=== PATIENT | female | born 1945 | race Caucasian/White ===

== ENCOUNTER 2020-01-25 09:10 | Outpatient (CLI) | payer MEDICARE, SELFPAY ==
--- NOTE | ~2020-01-25 | MM_ITS ---
EXAMINATION: MM screening [facility] BI w mary ann HISTORY: Screening mammogram TECHNIQUE: Craniocaudal and mediolateral oblique 3-D tomosynthesis images were obtained and synthetic 2-D images were generated. CAD analysis was submitted and interpreted. COMPARISON: Comparison to multiple prior studies sequentially, with oldest reviewed study dated 03/2013. BREAST PARENCHYMAL COMPOSITION: There are scattered areas of fibroglandular density. FINDINGS: There is no evidence of suspicious mass, calcification, or architectural distortion to sugg est malignancy in either breast. There has been no suspicious interval change. IMPRESSION: 1. No mammographic evidence of malignancy. 2. Recommend routine screening mammography in one year. BI-RADS Category 1: Negative Reviewed, dictated and finalized at location A. URE FRAME MAKER
== END 2020-01-25 09:11 | disposition home or self-care (01) ==
LOC: CHSIMG 09:11
PROVIDERS: PCP Family Medicine; Visit Provider Family Medicine
DX: Z12.31 Encounter for screening mammogram for malignant neoplasm of breast (principal)
CPT/HCPCS: 77063; 77067

== ENCOUNTER 2020-06-02 10:10 | Outpatient (CLI) | payer MEDICARE, SELFPAY ==
[2020-06-02 10:24] LABS: Basophils Absolute Auto 0.09 K/mm3 (0.00-0.10); Basophils Percent Auto 0.8 % (0.0-1.0); Eosinophils Absolute Auto 0.16 K/mm3 (0.02-0.50); Eosinophils Percent Auto 1.4 % (1.0-6.0); Hematocrit 35.3 % (35.0-42.0); Hemoglobin 12.1 g/dL (11.7-13.8); Immature Granulocyte Absolute 0.06 K/mm3 (0.00-0.00); Immature Granulocyte Percent A 0.5 % (0.0-0.0); Lymphocytes Absolute Auto 1.87 K/mm3 (1.10-4.50); Lymphocytes Percent Auto 16.7 % (18.0-42.0); Mean Corpuscular HGB Conc 34.3 g/dL (32.0-36.0); Mean Corpuscular Hemoglobin 31.9 pg (27.0-31.0); Mean Corpuscular Volume 93.1 fL (78.0-102.0); Mean Platelet Volume 10.8 fl (9.2-11.8); Monocytes Absolute Auto 0.86 K/mm3 (0.10-0.90); Monocytes Percent Auto 7.7 % (2.0-11.0); Neutrophils Absolute Auto 8.1 K/mm3 (1.7-7.2); Neutrophils Percent Auto 72.9 % (50.0-70.0); Platelet Count Result 216 K/mm3 (150-420); Red Blood Count 3.79 M/mm3 (4.20-5.40); Red Cell Distribution Width 12.6 % (11.6-14.4); White Blood Count 11.2 K/mm3 (4.8-10.8)
[2020-06-02 11:28] LABS: Albumin Level 3.8 g/dL (3.4-5.0); Blood Urea Nitrogen 30 mg/dL (7-18); Calcium 8.5 mg/dL (8.5-10.1); Carbon Dioxide 23 mmol/L (21-32); Chloride 103 mmol/L (98-108); Estimated Glomerular Filt Rate 21; Glucose 103 mg/dL (70-99); Osmolality Calculated 294 mOsm/kg (285-295); Phosphorus 3.3 mg/dL (2.6-4.7); Sodium 139 mmol/L (136-145)
[2020-06-05 10:40] LABS: Parathyroid Intact 226 pg/mL (14-64)
== END 2020-06-02 10:11 | disposition home or self-care (01) ==
PROVIDERS: PCP Family Medicine
DX: N18.4 Chronic kidney disease, stage 4 (severe) (principal)
CPT/HCPCS: 36415; 80069; 83970; 85025

== ENCOUNTER 2020-08-08 10:53 | Outpatient (CLI) | payer MEDICARE, SELFPAY ==
[2020-08-08 11:13] LABS: Hemoglobin A1C 5.8 % (<5.7)
== END 2020-08-08 10:54 | disposition home or self-care (01) ==
PROVIDERS: PCP Nurse Practitioner Family; Visit Provider Nurse Practitioner Family
DX: E11.9 Type 2 diabetes mellitus without complications (principal); Z79.4 Long term (current) use of insulin
CPT/HCPCS: 36415; 83036

== ENCOUNTER 2020-10-10 12:10 | Outpatient (CLI) | payer MEDICARE, SELFPAY ==
[2020-10-10 13:21] LABS: Anion Gap 12 mmol/L (8-16); Blood Urea Nitrogen 27 mg/dL (7-18); Carbon Dioxide 28 mmol/L (21-32); Chloride 103 mmol/L (98-108); Estimated Glomerular Filt Rate 19; Glucose 84 mg/dL (70-99); Osmolality Calculated 300 mOsm/kg (285-295); Potassium 4.1 mmol/L (3.5-5.1); Sodium 143 mmol/L (136-145)
[2020-10-13 11:50] LABS: Parathyroid Intact 107 pg/mL (14-64)
== END 2020-10-10 12:11 | disposition home or self-care (01) ==
PROVIDERS: PCP Family Medicine
DX: N18.4 Chronic kidney disease, stage 4 (severe) (principal)
CPT/HCPCS: 36415; 80048; 83970

== ENCOUNTER 2021-01-27 07:23 | Outpatient (CLI) | payer MEDICARE, MEDICAID, SELFPAY ==
--- NOTE | ~2021-01-27 | MM_ITS ---
EXAMINATION: MM screening [facility] w mary ann HISTORY: Screening TECHNIQUE: Craniocaudal and mediolateral oblique 3-D tomosynthesis images were obtained and synthetic 2-D images were generated. CAD analysis was submitted and interpreted. COMPARISON: Comparison to multiple prior studies sequentially, with oldest reviewed study dated 01/09. BREAST PARENCHYMAL COMPOSITION: There are scattered areas of fibroglandular density. FINDINGS: There is no evidence of suspicious mass, calcification, or architectural distortion to sugg est malignancy in either breast. There has been no suspicious interval change. IMPRESSION: 1. No mammographic evidence of malignancy. 2. Recommend routine screening mammography in one year. BI-RADS Category 1: Negative Reviewed, dictated and finalized at location A. WORKER
== END 2021-01-27 07:24 | disposition home or self-care (01) ==
LOC: CHSIMG 07:26
PROVIDERS: PCP Family Medicine; Visit Provider Family Medicine
DX: Z12.31 Encounter for screening mammogram for malignant neoplasm of breast (principal)
CPT/HCPCS: 77063; 77067

== ENCOUNTER 2021-12-01 11:13 | Outpatient (CLI) | payer OTHER, SELFPAY ==
[2021-12-01 11:56] LABS: Albumin Level 3.7 g/dL (3.4-5.0); Anion Gap 11 mmol/L (8-16); Blood Urea Nitrogen 35 mg/dL (7-18); Calcium 8.9 mg/dL (8.5-10.1); Carbon Dioxide 28 mmol/L (21-32); Chloride 105 mmol/L (98-108); Estimated Glomerular Filt Rate 24; Glucose 171 mg/dL (70-99); Osmolality Calculated 310 mOsm/kg (285-295); Phosphorus 4.7 mg/dL (2.6-4.7); Sodium 144 mmol/L (136-145)
== END 2021-12-01 11:14 | disposition home or self-care (01) ==
LOC: CHSLAB 11:17
PROVIDERS: PCP Family Medicine
DX: N18.30 Chronic kidney disease, stage 3 unspecified (principal)
CPT/HCPCS: 36415; 80069

== ENCOUNTER 2021-12-08 09:22 | Outpatient (CLI) | payer MEDICARE, OTHER, MEDICAID, SELFPAY ==
--- NOTE | ~2021-12-08 | US_ITS ---
EXAMINATION: US retroperitoneal comp EXAM DATE: 12/08/2021 09:58 INDICATION: Urinary Retention. TECHNIQUE: Multiple grayscale and Doppler images of the kidneys were obtained (by a technologist who performed the scan) and subsequently reviewed. Comparison is made to prior examination from 2009. FINDINGS: Severe bilateral renal cortical thinning. Right kidney: There is normal contour and echogenicity. It measures 7.6 x 3.9 x 3.9 centimeters. Th ere are no focal renal lesions identified. There is no hydronephrosis. Left kidney: There is lobular in contour and echogenicity. It measures 7.5 x 3.8 x 4.3 centimeters. Focal region was measured which could be a lobulation of the renal cortex, or solid mass measuring up to 2 cm. Possible lobulation in this location in 2009, atrophy of the other portions of cortex poten tially could cause this appearance. There is no hydronephrosis. Bladder unremarkable. Prevoid bladder volume is 149 mL, postvoid volume 10 mL. IMPRESSION: 1. Indeterminate left renal region, with lobulation or solid mass. Correlation with cross-sectional imaging, with contrast if able. 2. Severe bilateral renal cortical thinning, atrophy. 3. Only small postvoid residual. Reviewed, dictated and finalized at location A. TOLOGY SUPERVISOR
== END 2021-12-08 09:23 | disposition home or self-care (01) ==
PROVIDERS: PCP Nurse Practitioner Family
DX: N18.4 Chronic kidney disease, stage 4 (severe) (principal); R33.9 Retention of urine, unspecified
CPT/HCPCS: 76770

== ENCOUNTER 2022-01-28 07:36 | Outpatient (CLI) | payer OTHER, SELFPAY ==
--- NOTE | ~2022-01-28 | MM_ITS ---
EXAMINATION: MM screening [facility] BI w mary ann HISTORY: Screening mammogram TECHNIQUE: Craniocaudal and mediolateral oblique 3-D tomosynthesis images were obtained and synthetic 2-D images were generated. CAD analysis was submitted and interpreted. COMPARISON: 01/27/2021, 01/25/2020, 01/22/2019 BREAST PARENCHYMAL COMPOSITION: There are scattered areas of fibroglandular density. FINDINGS: There is no evidence of suspicious mass, calcification, or architectural distortion to sugg est malignancy in either breast. There has been no suspicious interval change. IMPRESSION: 1. No mammographic evidence of malignancy. 2. Recommend routine screening mammography in one year. BI-RADS Category 1: Negative Reviewed, dictated and finalized at location A. ETING PROJECT SPECIALIST
== END 2022-01-28 07:37 | disposition home or self-care (01) ==
LOC: CHSIMG 07:39
PROVIDERS: PCP Nurse Practitioner Family; Visit Provider Nurse Practitioner Family
DX: Z12.31 Encounter for screening mammogram for malignant neoplasm of breast (principal)
CPT/HCPCS: 77063; 77067

== ENCOUNTER 2022-03-03 11:45 | Outpatient (CLI) | payer OTHER, SELFPAY ==
--- NOTE | ~2022-03-03 | US_ITS ---
EXAMINATION: US retroperitoneal comp DATE: 03/03/2022 12:18 INDICATION: Stage IV chronic kidney disease TECHNIQUE: Multiple ultrasound grayscale images of the kidneys were obtained. COMPARISON: 12/08/2021 FINDINGS: The right kidney measures 9.2 x 3.8 x 4.1 cm. Small region of chronic cortical thinning at the upper pole of the right kidney as also seen on prior CT dated 06/20/2009. The left kidney measures 9.5 x 4.6 x 4.9 cm. With unchanged lobular peripheral contour without evident associated mass. Bilateral mild diffuse increased renal cortical echogenicity consistent with medical renal disease. 4 mm anechoic ri ght renal cyst. There is no hydronephrosis in either kidney. No stones identified. The bladder is no rmal with calculated prevoid bladder volume of 293 mm and calculated postvoid bladder volume of 25 mL . IMPRESSION: 1. Chronic cortical scarring at the upper pole of the right kidney and mild bilateral increased mame l cortical echogenicity consistent with medical renal disease. No hydronephrosis. 2. 25 mL calculated residual postvoid bladder volume. Reviewed, dictated and finalized at location B. IMPRESSION: 1. Chronic cortical scarring at the upper pole of the right kidney and mild bi lateral increased renal cortical echogenicity consistent with medical renal dis ease. No hydronephrosis. 2. 25 mL calculated residual postvoid bladder volume.
[2022-03-03 15:23] LABS: Appearance Urine Clear (Clear); Bilirubin Urine Negative (Negative); Color Urine Light Yellow (Yellow); Glucose Urine UA Negative (Negative); Ketones Urine Negative (Negative); Leukocyte Esterase Ur 2+ (Negative); Nitrate Urine Negative (Negative); Protein Urine Negative (Negative); Specific Grav Ur <= 1.005 (1.010-1.020); Urobilinogen Urine 0.2 mg/dL (0.2-1.0); pH Urine 5.5 (5.0-8.0)
[2022-03-03 15:27] LABS: Creatinine Urine 20.22 mg/dL (40-278); Total Protein Urine Random < 6.0 mg/dL (0.0-11.9)
[2022-03-03 15:47] LABS: Add Urine Microscopic? YES; Bacteria Urine 2+ /hpf; Blood Urine Trace-Intact (Negative); RBC Urine None seen /hpf (0-2); Renal Epithelial Cells Urine Few /hpf; Squamous Epithelial Cell Urine Few /hpf (Few); WBC Urine 0-3 /hpf (0-3)
[2022-03-03 15:47] LABS: Hematocrit 33.7 % (35.0-42.0); Hemoglobin 11.8 g/dL (11.7-13.8); Mean Corpuscular Volume 91.3 fL (78.0-102.0); Mean Platelet Volume 12.1 fl (9.2-11.8); Platelet Count Result 216 K/mm3 (150-420); Red Blood Count 3.69 M/mm3 (4.20-5.40); Red Cell Distribution Width 12.1 % (11.6-14.4); White Blood Count 9.3 K/mm3 (4.8-10.8)
[2022-03-03 15:54] LABS: Albumin Level 3.6 g/dL (3.4-5.0); Anion Gap 10 mmol/L (8-16); Blood Urea Nitrogen 18 mg/dL (7-18); Calcium 8.4 mg/dL (8.5-10.1); Carbon Dioxide 24 mmol/L (21-32); Chloride 91 mmol/L (98-108); Creatine Kinase 199 U/L (26-192); Estimated Glomerular Filt Rate 40; Ferritin 132 ng/mL (8-252); Glucose 64 mg/dL (70-99); Iron 76 ug/dL (50-170); Magnesium 1.6 mg/dL (1.8-2.4); Osmolality Calculated 259 mOsm/kg (285-295); Percent Iron Saturation 26 % (12-57); Phosphorus 3.3 mg/dL (2.6-4.7); Potassium 3.1 mmol/L (3.5-5.1); Sodium 125 mmol/L (136-145); Uric Acid 5.8 mg/dL (2.6-6.0)
[2022-03-07 05:07] LABS: Alpha 1 Globulin 0.3 g/dL (0.2-0.3); Alpha 2 Globulin 0.7 g/dL (0.5-0.9); Beta 1 Globulin 0.4 g/dL (0.4-0.6); Gamma Globulin 0.8 g/dL (0.8-1.7); Protein, Total 6.5 g/dL (6.1-8.1)
[2022-03-08 19:50] LABS: Creatinine, Random Urine 25 mg/dL (20-275); Total Protein/Creatinine Ratio 200 mg/g creat (21-161)
[2022-03-09 12:08] LABS: Parathyroid Intact 106 pg/mL (14-64)
[2022-03-09 15:13] LABS: Hemoglobin A1C 6.2 % (<5.7)
[2022-03-10 15:47] LABS: Vitamin D 25 Hydroxy 30 ng/mL (30-100)
== END 2022-03-03 11:46 | disposition home or self-care (01) ==
PROVIDERS: PCP Nurse Practitioner Family
DX: N18.6 End stage renal disease (principal); E55.9 Vitamin D deficiency, unspecified; D50.9 Iron deficiency anemia, unspecified
CPT/HCPCS: 36415; 76770; 80069; 81001; 82306; 82550; 82570; 82728; 83036; 83540; 83550; 83735; 83970; 84155; 84156; 84165; 84166; 84550; 85027

== ENCOUNTER 2022-03-04 12:23 | Emergency (ER) | payer OTHER, SELFPAY ==
--- NOTE | ~2022-03-04 | XR_ITS ---
EXAMINATION: XR chest 1V portable EXAM DATE: 03/04/2022 13:22 INDICATION: chest pain,Dizzy,Abn Labs . TECHNIQUE: Portable AP frontal chest x-ray was obtained. There is no prior study for comparison. FINDINGS: Left basilar granuloma. The lungs are otherwise clear. There are no pleural effusions. Th e cardiomediastinal silhouette is within normal limits. There is no pneumothorax suspected. There a re mild bony degenerative changes. IMPRESSION: No acute cardiopulmonary findings. Reviewed, dictated and finalized at location A.
--- NOTE | ~2022-03-04 | CT_ITS ---
EXAMINATION: CT brain wo [facility] EXAM DATE: 03/04/2022 13:22 INDICATION: Confusion, generalized weakness. Dizziness. TECHNIQUE: Spiral CT of the head was performed without contrast. Axial, coronal and sagittal images were reviewed. The dose-length product (DLP) for this examination was 529.67 mGy-cm. The exposure w as tailored according to patient size, and iterative reconstruction (ASIR) was used as additional dos e reduction technique. There is no prior study for comparison. FINDINGS: There is no acute intraparenchymal hemorrhage. No evidence of intraparenchymal brain mass lesion. No evidence of acute infarction. Please note that initial head CT has limited sensitivity f or small or acute infarctions. There is mild periventricular and subcortical hypodensity, nonspecifi c but probably related to small vessel ischemic disease. There is mild prominence of the sulci and ventricles related to cerebral atrophy. There is intracranial carotid arteriosclerosis. There are no extra-axial collections. There is no mass effect or midline shift. The orbits are unremarkable. Soft tissue is unremarkable. The visualized sinuses and mastoid air cells are well aerated. IMPRESSION: 1. No acute intracranial findings. 2. Chronic age related findings. Reviewed, dictated and finalized at location A.
[2022-03-04 12:47] VITALS: BP 145/68; PULSE 55; RESP 20; TEMP 36.7; O2SAT 100
--- NOTE | 2022-03-04 12:51 | ECG_ITS ---
Measurements Intervals [place] Rate: 54 P: 1 VT: 197 QRS: -36 QRSD: 87 T: 9 QT: 468 QTc: 447 Interpretive Statements SINUS BRADYCARDIA LEFT AXIS DEVIATION [QRS AXIS < -30] LOW QRS VOLTAGE IN PRECORDIAL LEADS [QRS DEFLECTION < 1.0 mV IN CHEST LEADS] MINIMAL VOLTAGE CRITERIA FOR LVH, CONSIDER NORMAL VARIANT [MEETS CRITERIA IN ONE OF: R(aVL), S(V1), R(V5), R(V5/V6)+S(V1)] POSSIBLE ANTERIOR MYOCARDIAL INFARCTION , OF INDETERMINATE AGE [30 ms Q WAVE IN V3/V4, OR R < 0.2 mV IN V4] NO PREVIOUS ECG AVAILABLE FOR COMPARISON Electronically Signed On 03-04-2022 19:03:10 CDT by Brandy Chiang M.D.
[2022-03-04] MEDS: SODIUM CHLORIDE 0.9% IV 1,000 ML 999 ML IV CONT (13:11)
[2022-03-04 13:14] LABS: Basophils Absolute Auto 0.06 K/mm3 (0.00-0.10); Basophils Percent Auto 0.7 % (0.0-1.0); Eosinophils Absolute Auto 0.04 K/mm3 (0.02-0.50); Eosinophils Percent Auto 0.4 % (1.0-6.0); Hematocrit 34.4 % (35.0-42.0); Hemoglobin 12.1 g/dL (11.7-13.8); Immature Granulocyte Absolute 0.04 K/mm3 (0.00-0.00); Immature Granulocyte Percent A 0.4 % (0.0-0.0); Lymphocytes Absolute Auto 1.34 K/mm3 (1.10-4.50); Lymphocytes Percent Auto 15.1 % (18.0-42.0); Mean Corpuscular HGB Conc 35.2 g/dL (32.0-36.0); Mean Corpuscular Hemoglobin 31.7 pg (27.0-31.0); Mean Corpuscular Volume 90.1 fL (78.0-102.0); Monocytes Absolute Auto 0.75 K/mm3 (0.10-0.90); Monocytes Percent Auto 8.4 % (2.0-11.0); Neutrophils Absolute Auto 6.7 K/mm3 (1.7-7.2); Platelet Count Result 214 K/mm3 (150-420); Red Blood Count 3.82 M/mm3 (4.20-5.40); Red Cell Distribution Width 11.9 % (11.6-14.4); White Blood Count 8.9 K/mm3 (4.8-10.8)
[2022-03-04 13:39] LABS: Alanine Aminotransferase 7 U/L (14-59); Albumin Level 3.7 g/dL (3.4-5.0); Alkaline Phosphatase 90 U/L (46-116); Anion Gap 11 mmol/L (8-16); Aspartate Amino Transferase 26 U/L (15-37); Bilirubin,Total 0.7 mg/dL (0.00-1.00); Blood Urea Nitrogen 18 mg/dL (7-18); Calcium 9.1 mg/dL (8.5-10.1); Carbon Dioxide 23 mmol/L (21-32); Chloride 90 mmol/L (98-108); Estimated CRCL calculation 23 ml/min; Estimated Glomerular Filt Rate 31; Glucose 103 mg/dL (70-99); Osmolality Calculated 259 mOsm/kg (285-295); Potassium 3.2 mmol/L (3.5-5.1); Sodium 124 mmol/L (136-145); Total Protein 6.9 g/dL (6.4-8.2)
[2022-03-04] MEDS: POTASSIUM CHLORIDE 20 MEQ TABLET 40 MEQ PO (14:15)
--- NOTE | 2022-03-04 15:18 | ED.RECABL ---
HPI - Recheck/Abnormal Lab/Rx General Chief Complaint: Recheck/Abnormal Lab/Rx Stated Complaint: potassium is low per Mariam Time Seen by Provider: 03/04/22 12:25 Source: patient, family and RN notes reviewed Mode of arrival: ambulatory Limitations: no limitations History of Present Illness MD complaint: abnormal lab Description of abnormal result: See medical records and nurses notes. Symptoms since prior visit: no new symptoms Context: called for abnormal lab result Related Data Home Medications Medication Instructions Recorded Confirmed amlodipine 10 mg PO DAILY 12/01/19 03/04/22 metoprolol succinate 50 mg PO DAILY 12/01/19 03/04/22 alendronate 70 mg tablet 70 mg PO WEEKLY 12/10/19 03/04/22 aspirin 81 mg tablet,delayed 81 mg PO DAILY 12/10/19 03/04/22 release atorvastatin 20 mg PO DAILY 03/04/22 03/04/22 lisinopril 20 mg PO DAILY 03/04/22 03/04/22 Allergies Allergy/AdvReac Type Severity Reaction Status Date / Time Penicillins Allergy Unknown Unknown Verified 03/09/22 14:43 Review of Systems Review of Systems: All systems reviewed & are unremarkable except as noted in HPI and below PMFSH Past Medical History Medical History 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 Father Diabetes mellitus Social History Social History Smoking status: Never smoker Alcohol intake: never Substance use: never Additional living arrangements comments: . 3 Children. Gender identity (if verbalized by the patient): Female Sexual Orientation (if Verbalized by the Patient): Straight or Heterosexual Exam Const: General: no acute distress Nutritional Appearance: thin Orientation/consciousness: patient oriented x3 Limitations: no limitations HENMT: Ears: external ears normal, TM's normal bilaterally and EAC's normal General nose exam: Normal external nose present and Normal nares present Face and sinus: normal facial exam and sinuses nontender Mouth: Yes moist mucous membranes Throat: posterior oropharynx normal Eyes: Conjunctivae: conjunctivae normal Pupils: Equal, round and reactive pupils present EOM: EOMs intact bilaterally Neck: Neck: normal visual inspection and no lymphadenopathy Chest: Chest palpation & inspection: normal inspection of the chest Resp: Effort & Inspection: normal respiratory effort Auscultation: clear to auscultation bilaterally Cardio: Rate: regular rate Rhythm: regular rhythm GI: GI Palp: Yes Soft to palpation and No Tenderness to palpation present (GI) Auscultation: normal bowel sounds : General: Yes bladder normal to palpation and Yes no CVA tenderness Back/Spine/Pelvis: Back: no CVA tenderness Skin: General skin exam: normal color Rashes: no rashes Neuro: General: patient oriented x3, moves all extremities, no meningeal signs, no focal motor deficits and CN's II-XI intact bilaterally Extrem: General: normal to inspection and no pedal edema Psych: Appearance: grossly normal and well kempt Mental Status: mental status grossly normal Affect: normal affect Attitude: cooperative Thought content: Yes Normal thought content present Course Course Emergency Course: Pt was stable in the ED. Reevaluation(s) Date: 03/04/22 Time: 13:21 Vital Si
[2022-03-04 15:46] VITALS: BP 140/75; PULSE 61; RESP 20; TEMP 36.7; O2SAT 100
== END 2022-03-04 15:50 | disposition home or self-care (01) ==
PROVIDERS: Emergency Provider Emergency Medicine; PCP Nurse Practitioner Family
DX: E87.6 Hypokalemia (principal); E87.1 Hypo-osmolality and hyponatremia; I12.9 Hypertensive chronic kidney disease with stage 1 through stage 4 chronic kidney disease, or unspecified chronic kidney disease; N18.4 Chronic kidney disease, stage 4 (severe); K21.9 Gastro-esophageal reflux disease without esophagitis; E78.5 Hyperlipidemia, unspecified
CPT/HCPCS: 36415; 70450; 71045; 80053; 84484; 85025; 93005; 96360; 96361; 99284; A9270; J7030

== ENCOUNTER 2022-03-16 10:24 | Outpatient (CLI) | payer OTHER, SELFPAY ==
[2022-03-16 11:48] LABS: Anion Gap 11 mmol/L (8-16); Blood Urea Nitrogen 20 mg/dL (7-18); Calcium 8.7 mg/dL (8.5-10.1); Carbon Dioxide 25 mmol/L (21-32); Chloride 105 mmol/L (98-108); Estimated Glomerular Filt Rate 32; Glucose 86 mg/dL (70-99); Osmolality Calculated 293 mOsm/kg (285-295); Potassium 4.6 mmol/L (3.5-5.1); Sodium 141 mmol/L (136-145)
== END 2022-03-16 10:25 | disposition home or self-care (01) ==
LOC: CHSLAB 10:28
PROVIDERS: PCP Nurse Practitioner Family; Visit Provider Internal Medicine Nephrology
DX: E87.1 Hypo-osmolality and hyponatremia (principal)
CPT/HCPCS: 36415; 80048

== ENCOUNTER 2022-05-02 08:48 | Emergency (ER) | payer OTHER, SELFPAY ==
[2022-05-02 09:08] VITALS: BP 138/82; PULSE 67; RESP 18; TEMP 36.5; O2SAT 100
--- NOTE | 2022-05-02 09:25 | ED.SKABFB ---
HPI - Skin/Abscess/Foreign Bdy General Chief complaint: Skin/Abscess/Foreign Body Stated complaint: legs and ankles blotchy and itchy Time Seen by Provider: 05/02/22 08:52 Source: patient and RN notes reviewed Mode of arrival: ambulatory Limitations: no limitations History of Present Illness HPI narrative: localized itchy rash of both shins x 1 week complaint: rash Onset (ago): week(s) (1) Tetanus up to date: unsure Location: LLE and RLE Severity: mild Quality: other (no pain) Pain Consistency: constant Relieving factors: none Exacerbating factors: none Associated symptoms: denies other symptoms Treatments prior to arrival: corticosteroid Related Data Home Medications Medication Instructions Recorded Confirmed amlodipine 5 mg tablet 10 mg PO DAILY 12/01/19 03/04/22 metoprolol succinate 50 mg 50 mg PO DAILY 12/01/19 03/04/22 tablet,extended release 24 hr alendronate 70 mg tablet (Fosamax) 70 mg PO WEEKLY 12/10/19 03/04/22 aspirin 81 mg tablet,delayed 81 mg PO DAILY 12/10/19 03/04/22 release (Adult Low Dose Aspirin) atorvastatin 20 mg tablet 20 mg PO DAILY 03/04/22 03/04/22 lisinopril 30 mg tablet 20 mg PO DAILY 03/04/22 03/04/22 Allergies Allergy/AdvReac Type Severity Reaction Status Date / Time Penicillins Allergy Unknown Unknown Verified 05/02/22 09:14 Review of Systems Review of Systems: All systems reviewed & are unremarkable except as noted in HPI and below Constitutional: Constitutional: Reports no additional constitutional complaints Eyes: Eyes: Reports no additional eye complaints ENT: Reports system reviewed and no additional complaints, except as documented Cardiovascular: Cardiovascular: Reports no additional cardiovascular complaints Respiratory: Respiratory: Reports no additional respiratory complaints Gastrointestinal: Gastrointestinal: Reports no additional gastrointestinal complaints Genitourinary: Genitourinary: Reports no additional female genitourinary complaints Musculoskeletal: Musculoskeletal: Reports no additional musculoskeletal complaints Integumentary/Breasts: Skin/Breast: Reports system reviewed and no additional complaints, except as docu Neurologic: Reports system reviewed and no additional complaints, except as documented Psychiatric: Psychiatric: Reports no additional psychiatric complaints Endocrine: Endocrine: Reports no additional endocrine complaints Hematologic/Lymphatic: Hematologic/Lymphatic: Reports no additional hematologic/lymphatic complaints Allergic/Immunologic: Allergic/Immunologic: Reports no additional allergic/immunologic complaints PMFSH Past Medical History Medical History 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 Father Diabetes mellitus Social History Social History Smoking status: Never smoker Alcohol intake: never Substance use: never Additional living arrangements comments: . 3 Children. Gender identity (if verbalized by the patient): Female Sexual Orientation (if Verbalized by the Patient): Straight or Heterosexual Exam Const: General: healthy appearing and no acute distress Nutritional Appearance: well nourished Orientation/consciousness: patient oriented x3 Limitations: no limitat
== END 2022-05-02 09:46 | disposition home or self-care (01) ==
PROVIDERS: Emergency Provider Emergency Medicine; PCP Nurse Practitioner Family
DX: L30.9 Dermatitis, unspecified (principal)
CPT/HCPCS: 99283

== ENCOUNTER 2022-06-07 09:42 | Outpatient (CLI) | payer OTHER, SELFPAY ==
[2022-06-07 10:13] LABS: Albumin Level 4.1 g/dL (3.4-5.0); Anion Gap 10 mmol/L (8-16); Blood Urea Nitrogen 24 mg/dL (7-18); Calcium 9.3 mg/dL (8.5-10.1); Carbon Dioxide 23 mmol/L (21-32); Chloride 107 mmol/L (98-108); Estimated Glomerular Filt Rate 26; Glucose 168 mg/dL (70-99); Osmolality Calculated 298 mOsm/kg (285-295); Phosphorus 4.3 mg/dL (2.6-4.7); Potassium 4.5 mmol/L (3.5-5.1); Sodium 140 mmol/L (136-145)
[2022-06-10 10:07] LABS: Parathyroid Intact 141 pg/mL (14-64)
== END 2022-06-07 09:43 | disposition home or self-care (01) ==
LOC: CHSLAB 09:45
PROVIDERS: PCP Nurse Practitioner Family; Visit Provider Internal Medicine Nephrology
DX: N18.30 Chronic kidney disease, stage 3 unspecified (principal)
CPT/HCPCS: 36415; 80069; 83970

== ENCOUNTER 2022-09-07 08:51 | Outpatient (CLI) | payer OTHER, SELFPAY ==
[2022-09-07 09:08] LABS: Basophils Absolute Auto 0.06 K/mm3 (0.00-0.10); Basophils Percent Auto 0.7 % (0.0-1.0); Eosinophils Absolute Auto 0.16 K/mm3 (0.02-0.50); Eosinophils Percent Auto 1.9 % (1.0-6.0); Hematocrit 36.5 % (35.0-42.0); Immature Granulocyte Absolute 0.03 K/mm3 (0.00-0.00); Immature Granulocyte Percent A 0.4 % (0.0-0.0); Lymphocytes Absolute Auto 1.43 K/mm3 (1.10-4.50); Lymphocytes Percent Auto 17.3 % (18.0-42.0); Mean Corpuscular HGB Conc 32.9 g/dL (32.0-36.0); Mean Corpuscular Hemoglobin 31.4 pg (27.0-31.0); Mean Corpuscular Volume 95.5 fL (78.0-102.0); Mean Platelet Volume 11.4 fl (9.2-11.8); Monocytes Absolute Auto 0.61 K/mm3 (0.10-0.90); Monocytes Percent Auto 7.4 % (2.0-11.0); Neutrophils Percent Auto 72.3 % (50.0-70.0); Platelet Count Result 176 K/mm3 (150-420); Red Blood Count 3.82 M/mm3 (4.20-5.40); Red Cell Distribution Width 12.8 % (11.6-14.4); White Blood Count 8.3 K/mm3 (4.8-10.8)
[2022-09-07 09:09] LABS: Appearance Urine Clear (Clear); Bilirubin Urine Negative (Negative); Blood Urine 1+ (Negative); Glucose Urine UA Negative (Negative); Ketones Urine Negative (Negative); Leukocyte Esterase Ur 3+ LEU/UL (Negative); Nitrate Urine Positive (Negative); Protein Urine Negative (Negative); Specific Grav Ur 1.025 (1.010-1.020); Urobilinogen Urine 0.2 mg/dL (0.2-1.0)
[2022-09-07 09:14] LABS: Add Urine Microscopic? YES; Color Urine Light Yellow (Yellow); Squamous Epithelial Cell Urine Few /hpf (Few); WBC Urine 31-50 /hpf (0-3)
[2022-09-07 09:15] LABS: Bacteria Urine 3+ /hpf
[2022-09-07 09:16] LABS: Total Protein Urine Random 35.3 mg/dL (0.0-11.9)
[2022-09-07 10:02] LABS: Alanine Aminotransferase 21 U/L (14-59); Albumin Level 3.8 g/dL (3.4-5.0); Alkaline Phosphatase 89 U/L (46-116); Anion Gap 8 mmol/L (8-16); Aspartate Amino Transferase 19 U/L (15-37); Bilirubin,Total 0.4 mg/dL (0.00-1.00); Blood Urea Nitrogen 25 mg/dL (7-18); Carbon Dioxide 28 mmol/L (21-32); Chloride 108 mmol/L (98-108); Estimated Glomerular Filt Rate 32; Ferritin 90 ng/mL (8-252); Glucose 97 mg/dL (70-99); Iron 89 ug/dL (50-170); Magnesium 1.8 mg/dL (1.8-2.4); Osmolality Calculated 302 mOsm/kg (285-295); Percent Iron Saturation 30 % (12-57); Phosphorus 4.4 mg/dL (2.6-4.7); Sodium 144 mmol/L (136-145); Total Protein 6.6 g/dL (6.4-8.2); Uric Acid 5.1 mg/dL (2.6-6.0)
[2022-09-09 18:34] LABS: Alpha 1 Globulin 0.3 g/dL (0.2-0.3); Alpha 2 Globulin 0.8 g/dL (0.5-0.9); Beta 1 Globulin 0.4 g/dL (0.4-0.6); Gamma Globulin 0.8 g/dL (0.8-1.7); Protein, Total 6.7 g/dL (6.1-8.1)
[2022-09-10 21:59] LABS: Vitamin D 25 Hydroxy 49 ng/mL (30-100)
[2022-09-12 05:54] LABS: Total Protein/Creatinine Ratio 180 mg/g creat (24-184)
[2022-09-12 14:22] LABS: Parathyroid Intact 43 pg/mL (14-64)
[2022-09-20 10:38] LABS: Creatinine, Random Urine 133
== END 2022-09-07 08:52 | disposition home or self-care (01) ==
LOC: CHSLAB 08:55
PROVIDERS: PCP Nurse Practitioner Family
DX: N18.30 Chronic kidney disease, stage 3 unspecified (principal); N39.0 Urinary tract infection, site not specified; E55.9 Vitamin D deficiency, unspecified; D64.9 Anemia, unspecified
CPT/HCPCS: 36415; 80053; 81001; 81050; 82306; 82570; 82728; 83540; 83550; 83735; 83970; 84100; 84155; 84156; 84165; 84166; 84550; 85025; 87077; 87086; 87088; 87186

== ENCOUNTER 2022-12-25 07:43 | Emergency (ER) | payer OTHER, SELFPAY ==
[2022-12-25 07:43] VITALS: BP 148/77; PULSE 83; RESP 18; TEMP 36.6; O2SAT 99
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
[2022-12-25] MEDS: TETANUS,DIPHTHERIA,AC PERTUSSIS ADULT 0.5 ML (ADACEL) IM (08:19)
[2022-12-25] MEDS: SILVER SULFADIAZINE 1% CR 50 GM JAR (*BKC) 1 APPLIC TOPICAL (08:20)
[2022-12-25 12:52] VITALS: BP 140/77; PULSE 84; RESP 20; TEMP 36.6; O2SAT 97
== END 2022-12-25 08:30 | disposition home or self-care (01) ==
PROVIDERS: Emergency Provider Internal Medicine Critical Care Medicine; PCP Nurse Practitioner Family
DX: T23.261A Burn of second degree of back of right hand, initial encounter (principal); T31.0 Burns involving less than 10% of body surface; E87.5 Hyperkalemia; E11.22 Type 2 diabetes mellitus with diabetic chronic kidney disease; I12.9 Hypertensive chronic kidney disease with stage 1 through stage 4 chronic kidney disease, or unspecified chronic kidney disease; N18.4 Chronic kidney disease, stage 4 (severe); Z23 Encounter for immunization; X10.0XXA Contact with hot drinks, initial encounter
CPT/HCPCS: 90471; 90715; 99283; A9270

== ENCOUNTER 2023-01-03 08:52 | Outpatient (CLI) | payer OTHER, SELFPAY ==
[2023-01-03 09:13] LABS: Basophils Absolute Auto 0.08 K/mm3 (0.00-0.10); Basophils Percent Auto 1.2 % (0.0-1.0); Eosinophils Absolute Auto 0.11 K/mm3 (0.02-0.50); Eosinophils Percent Auto 1.6 % (1.0-6.0); Hematocrit 37.3 % (35.0-42.0); Hemoglobin 12.4 g/dL (11.7-13.8); Immature Granulocyte Absolute 0.02 K/mm3 (0.00-0.00); Immature Granulocyte Percent A 0.3 % (0.0-0.0); Lymphocytes Absolute Auto 1.53 K/mm3 (1.10-4.50); Mean Corpuscular HGB Conc 33.2 g/dL (32.0-36.0); Mean Corpuscular Hemoglobin 31.8 pg (27.0-31.0); Mean Corpuscular Volume 95.6 fL (78.0-102.0); Mean Platelet Volume 11.7 fl (9.2-11.8); Monocytes Absolute Auto 0.51 K/mm3 (0.10-0.90); Monocytes Percent Auto 7.3 % (2.0-11.0); Neutrophils Absolute Auto 4.7 K/mm3 (1.7-7.2); Neutrophils Percent Auto 67.6 % (50.0-70.0); Platelet Count Result 207 K/mm3 (150-420); Red Cell Distribution Width 11.9 % (11.6-14.4)
[2023-01-03 09:35] LABS: Albumin Level 3.8 g/dL (3.4-5.0); Anion Gap 9 mmol/L (8-16); Blood Urea Nitrogen 33 mg/dL (7-18); Calcium 8.8 mg/dL (8.5-10.1); Carbon Dioxide 25 mmol/L (21-32); Chloride 107 mmol/L (98-108); Estimated Glomerular Filt Rate 29; Glucose 152 mg/dL (70-99); Osmolality Calculated 302 mOsm/kg (285-295); Phosphorus 3.4 mg/dL (2.6-4.7); Potassium 4.3 mmol/L (3.5-5.1); Sodium 141 mmol/L (136-145)
== END 2023-01-03 08:53 | disposition home or self-care (01) ==
LOC: CHSLAB 08:55
PROVIDERS: PCP Nurse Practitioner Family; Visit Provider Internal Medicine Nephrology
DX: N18.30 Chronic kidney disease, stage 3 unspecified (principal)
CPT/HCPCS: 36415; 80069; 85025

== ENCOUNTER 2023-01-31 08:34 | Outpatient (CLI) | payer OTHER, SELFPAY ==
--- NOTE | ~2023-01-31 | MM_ITS ---
EXAMINATION: MM screening [facility] BI w mary ann HISTORY: Screening mammogram TECHNIQUE: Craniocaudal and mediolateral oblique 3-D tomosynthesis images were obtained and synthetic 2-D images were generated. CAD analysis was submitted and interpreted. COMPARISON: 01/28/2022, 01/27/2021, 01/25/2020 BREAST PARENCHYMAL COMPOSITION: There are scattered areas of fibroglandular density. FINDINGS: No suspicious mass, calcification, or architectural distortion are identified in either norris ast to suggest malignancy. There has been no suspicious interval change. IMPRESSION: 1. No mammographic evidence of malignancy. 2. Recommend routine screening mammography in one year. BI-RADS Category 1: Negative Reviewed, dictated and finalized at location A. HEAR OPERATOR
== END 2023-01-31 08:35 | disposition home or self-care (01) ==
LOC: CHSIMG 08:36
PROVIDERS: PCP Nurse Practitioner Family; Visit Provider Nurse Practitioner Family
DX: Z12.31 Encounter for screening mammogram for malignant neoplasm of breast (principal)
CPT/HCPCS: 77063; 77067

== ENCOUNTER 2023-03-22 13:25 | Outpatient (CLI) | payer OTHER, SELFPAY ==
[2023-03-22 13:38] LABS: Appearance Urine Clear (Clear); Bilirubin Urine Negative (Negative); Blood Urine Negative (Negative); Color Urine Light Yellow (Yellow); Glucose Urine UA 3+ (Negative); Ketones Urine Negative (Negative); Leukocyte Esterase Ur 1+ (Negative); Nitrate Urine Negative (Negative); Protein Urine Negative (Negative); Specific Grav Ur 1.015 (1.010-1.020); Urobilinogen Urine 0.2 mg/dL (0.2-1.0)
[2023-03-22 13:50] LABS: Add Urine Microscopic? NO; Bacteria Urine Rare /hpf; RBC Urine None seen /hpf (0-2); Squamous Epithelial Cell Urine Rare /hpf (Few); WBC Urine 0-3 /hpf (0-3)
== END 2023-03-22 13:26 | disposition home or self-care (01) ==
LOC: CHSLAB 13:28
PROVIDERS: PCP Nurse Practitioner Family; Visit Provider Nurse Practitioner Family
DX: N39.0 Urinary tract infection, site not specified (principal); M54.50 Low back pain, unspecified
CPT/HCPCS: 81003; 87086; 87088

== ENCOUNTER 2023-04-22 12:17 | Outpatient (CLI) | payer OTHER, SELFPAY ==
--- NOTE | ~2023-04-22 | XR_ITS ---
EXAMINATION: XR bone survey comp/metastic DATE: 04/22/2023 13:43 INDICATION: Monoclonal gammopathy of undetermined significance. TECHNIQUE: 30 views of a skeletal survey were obtained. COMPARISON: Head CT 03/04/2022 FINDINGS: There is moderate cervical spondylosis and mild thoracic spondylosis. A calcified left lung nodule and calcified left hilar and mediastinal lymph nodes are consistent with old granulomatous di sease. No pleural effusion or pneumothorax. The heart size is normal. There is dextroscoliosis and se helene spondylosis of lumbar spine. There are no lytic lesions of bone. IMPRESSION: 1. No evidence of multiple myeloma. Reviewed, dictated and finalized at location E.
[2023-04-22 12:52] LABS: Basophils Absolute Auto 0.06 K/mm3 (0.00-0.10); Basophils Percent Auto 0.7 % (0.0-1.0); Eosinophils Absolute Auto 0.07 K/mm3 (0.02-0.50); Eosinophils Percent Auto 0.8 % (1.0-6.0); Hematocrit 40.2 % (35.0-42.0); Hemoglobin 13.5 g/dL (11.7-13.8); Immature Granulocyte Absolute 0.03 K/mm3 (0.00-0.00); Immature Granulocyte Percent A 0.4 % (0.0-0.0); Immature Reticulocyte Fraction 11.1 % (2.0-16.52); Lymphocytes Absolute Auto 1.82 K/mm3 (1.10-4.50); Lymphocytes Percent Auto 21.8 % (18.0-42.0); Mean Corpuscular HGB Conc 33.6 g/dL (32.0-36.0); Mean Corpuscular Hemoglobin 31.9 pg (27.0-31.0); Mean Platelet Volume 11.9 fl (9.2-11.8); Monocytes Absolute Auto 0.56 K/mm3 (0.10-0.90); Monocytes Percent Auto 6.7 % (2.0-11.0); Neutrophils Absolute Auto 5.8 K/mm3 (1.7-7.2); Neutrophils Percent Auto 69.6 % (50.0-70.0); Platelet Count Result 194 K/mm3 (150-420); Red Blood Count 4.23 M/mm3 (4.20-5.40); Red Cell Distribution Width 12.6 % (11.6-14.4); Reticulocyte Hemoglobin Conten 35.4 pg (28.0-35.0); Reticulocyte Percent 1.73 % (0.50-1.50); Reticulocytes Absolute 0.07 M/mm3 (0.02-0.1); White Blood Count 8.4 K/mm3 (4.8-10.8)
[2023-04-22 13:45] LABS: Alanine Aminotransferase 62 U/L (14-59); Albumin Level 4.1 g/dL (3.4-5.0); Alkaline Phosphatase 85 U/L (46-116); Anion Gap 11 mmol/L (8-16); Aspartate Amino Transferase 35 U/L (15-37); Bilirubin,Total 0.6 mg/dL (0.00-1.00); Blood Urea Nitrogen 30 mg/dL (7-18); Calcium 9.2 mg/dL (8.5-10.1); Carbon Dioxide 25 mmol/L (21-32); Chloride 105 mmol/L (98-108); Estimated Glomerular Filt Rate 28; Ferritin 71 ng/mL (8-252); Glucose 130 mg/dL (70-99); Iron 109 ug/dL (50-170); Osmolality Calculated 300 mOsm/kg (285-295); Percent Iron Saturation 33 % (12-57); Potassium 3.9 mmol/L (3.5-5.1); Sodium 141 mmol/L (136-145); Total Protein 7.1 g/dL (6.4-8.2)
[2023-04-23 20:32] LABS: Collection Time Urine 24 HOURS
[2023-04-24 17:27] LABS: Creatinine Urine 17.07 mg/dL (40-278)
[2023-04-24 17:30] LABS: Creatinine 24 Hour Urine 0.47 g/24 hr (0.60-1.80); Total Volume 24 Hour Urine 2800 ml
[2023-04-24 17:31] LABS: Creatinine Clearance Urine 20.5 ml/min (97-137); Creatinine Urine 17.07 mg/dL (40-278); Patient Weight 133 Lbs; Serum Creat 1.75; Total Volume 24 Hour Urine 2800 ml
[2023-04-27 12:28] LABS: Kappa\\Lambda Light Chains 1.01 (0.26-1.65); Lambda Light Chain 23.3 mg/L (5.7-26.3)
[2023-04-27 16:28] LABS: Albumin 4.2 g/dL (3.8-4.8); Alpha 1 Globulin 0.3 g/dL (0.2-0.3); Alpha 2 Globulin 0.7 g/dL (0.5-0.9); Beta 1 Globulin 0.5 g/dL (0.4-0.6); Gamma Globulin 0.8 g/dL (0.8-1.7); Protein, Total 6.8 g/dL (6.1-8.1)
[2023-04-27 20:02] LABS: Beta-2-Microglobulin 4.29 mg/L (<=2.51); Immunoglobulin A 201 mg/dL (70-320); Immunoglobulin G 874 mg/dL (600-1540); Immunoglobulin M 69 mg/dL (50-300)
[2023-05-01 01:17] LABS: Albumin 24 Hr Urine 28 %; Creatinine, 24 Hr Urine 0.64 g/24 h (0.50-2.15)
[2023-05-02 08:20] LABS: Protein,total, 24 Hr Ur <4 mg/24h
== END 2023-04-22 12:18 | disposition home or self-care (01) ==
LOC: CHSLAB 12:20
PROVIDERS: PCP Nurse Practitioner Family; Visit Provider Internal Medicine Hematology & Oncology
DX: D47.2 Monoclonal gammopathy (principal); N18.4 Chronic kidney disease, stage 4 (severe); E11.22 Type 2 diabetes mellitus with diabetic chronic kidney disease; E11.9 Type 2 diabetes mellitus without complications
CPT/HCPCS: 36415; 77075; 80053; 81050; 82232; 82570; 82575; 82728; 82784; 83540; 83550; 83883; 84155; 84156; 84165; 84166; 85025; 85046; 86335

== ENCOUNTER 2023-06-13 10:44 | Outpatient (CLI) | payer OTHER, SELFPAY ==
--- NOTE | ~2023-06-13 | XR_ITS ---
EXAMINATION: XR bone survey comp/metastic DATE: 06/13/2023 12:37 INDICATION: Monoclonal gammopathy of undetermined significance. TECHNIQUE: 34 views of a skeletal survey were obtained. COMPARISON: Radiographs 04/22/2023 FINDINGS: A calcified left lung nodule is consistent with old granulomatous disease. No pleural effus ion or pneumothorax. The heart size is normal. IMPRESSION: 1. No lytic lesion of bone to suggest multiple myeloma. Reviewed, dictated and finalized at location A.
[2023-06-13 11:10] LABS: Immature Reticulocyte Fraction 7.5 % (2.0-16.52); Reticulocyte Hemoglobin Conten 36.7 pg (28.0-35.0); Reticulocyte Percent 1.26 % (0.50-1.50); Reticulocytes Absolute 0.05 M/mm3 (0.02-0.1)
[2023-06-13 12:08] LABS: Alanine Aminotransferase 43 U/L (14-59); Albumin Level 4.1 g/dL (3.4-5.0); Alkaline Phosphatase 78 U/L (46-116); Anion Gap 13 mmol/L (8-16); Aspartate Amino Transferase 25 U/L (15-37); Bilirubin,Total 0.5 mg/dL (0.00-1.00); Blood Urea Nitrogen 43 mg/dL (7-18); Calcium 8.9 mg/dL (8.5-10.1); Carbon Dioxide 22 mmol/L (21-32); Chloride 106 mmol/L (98-108); Estimated Glomerular Filt Rate 23; Ferritin 79 ng/mL (8-252); Glucose 155 mg/dL (70-99); Iron 118 ug/dL (50-170); Lactate Dehydrogenase 188 U/L (81-234); Osmolality Calculated 305 mOsm/kg (285-295); Percent Iron Saturation 35 % (12-57); Potassium 4.2 mmol/L (3.5-5.1); Sodium 141 mmol/L (136-145)
[2023-06-15 08:26] LABS: Basophils Absolute Auto 0.08 K/mm3 (0.00-0.10); Basophils Percent Auto 1.2 % (0.0-1.0); Eosinophils Absolute Auto 0.04 K/mm3 (0.02-0.50); Eosinophils Percent Auto 0.6 % (1.0-6.0); Hematocrit 42.1 % (35.0-42.0); Hemoglobin 13.2 g/dL (11.7-13.8); Immature Granulocyte Absolute 0.01 K/mm3 (0.00-0.00); Immature Granulocyte Percent A 0.1 % (0.0-0.0); Immature Platelet Fraction Pct 6.1 % (1.0-7.0); Lymphocytes Absolute Auto 1.31 K/mm3 (1.10-4.50); Lymphocytes Percent Auto 18.9 % (18.0-42.0); Mean Corpuscular HGB Conc 31.4 g/dL (32.0-36.0); Mean Corpuscular Volume 101.9 fL (78.0-102.0); Mean Platelet Volume 13.6 fl (9.2-11.8); Monocytes Absolute Auto 0.58 K/mm3 (0.10-0.90); Monocytes Percent Auto 8.4 % (2.0-11.0); Neutrophils Absolute Auto 4.9 K/mm3 (1.7-7.2); Neutrophils Percent Auto 70.8 % (50.0-70.0); Platelet Count Result 183 K/mm3 (150-420); Red Blood Count 4.13 M/mm3 (4.20-5.40); Red Cell Distribution Width 12.6 % (11.6-14.4); White Blood Count 6.9 K/mm3 (4.8-10.8)
[2023-06-15 20:07] LABS: Immunoglobulin A 189 mg/dL (70-320); Immunoglobulin G 841 mg/dL (600-1540); Immunoglobulin M 70 mg/dL (50-300)
[2023-06-16 10:43] LABS: Kappa\\Lambda Light Chains 1.15 (0.26-1.65); Lambda Light Chain 23.6 mg/L (5.7-26.3)
[2023-06-16 11:59] LABS: Albumin 4.3 g/dL (3.8-4.8); Alpha 1 Globulin 0.3 g/dL (0.2-0.3); Alpha 2 Globulin 0.7 g/dL (0.5-0.9); Beta 1 Globulin 0.5 g/dL (0.4-0.6); Gamma Globulin 0.8 g/dL (0.8-1.7); Protein, Total 6.9 g/dL (6.1-8.1)
== END 2023-06-13 10:45 | disposition home or self-care (01) ==
PROVIDERS: PCP Nurse Practitioner Family; Visit Provider Internal Medicine Hematology & Oncology
DX: D47.2 Monoclonal gammopathy (principal); N18.4 Chronic kidney disease, stage 4 (severe); E11.22 Type 2 diabetes mellitus with diabetic chronic kidney disease
CPT/HCPCS: 36415; 77075; 80053; 82668; 82728; 82784; 83540; 83550; 83615; 83883; 84155; 84165; 85025; 85046; 85055; 86335

== ENCOUNTER 2023-06-16 14:30 | Outpatient (CLI) | payer OTHER, SELFPAY ==
[2023-06-23 02:48] LABS: Creatinine, 24 Hr Urine 0.66 g/24 h (0.50-2.15); Total Protein/Creatinine Ratio 171 mg/g creat (<150)
== END 2023-06-16 14:31 | disposition home or self-care (01) ==
PROVIDERS: PCP Nurse Practitioner Family; Visit Provider Internal Medicine Hematology & Oncology
DX: D47.2 Monoclonal gammopathy (principal)
CPT/HCPCS: 81050; 82570; 84156; 84166; 86335

== ENCOUNTER 2023-07-08 15:02 | Outpatient (CLI) | payer OTHER, SELFPAY ==
[2023-07-08 16:11] LABS: Lactate Dehydrogenase 201 U/L (81-234)
[2023-07-13 15:14] LABS: Beta-2-Microglobulin 4.33 mg/L (<=2.51)
== END 2023-07-08 15:03 | disposition home or self-care (01) ==
PROVIDERS: PCP Nurse Practitioner Family; Visit Provider Internal Medicine Hematology & Oncology
DX: D47.2 Monoclonal gammopathy (principal)
CPT/HCPCS: 36415; 82232; 83615

== ENCOUNTER 2023-09-20 11:07 | Outpatient (NON) | payer OTHER, SELFPAY ==
[2023-09-20 11:39] LABS: Appearance Urine Clear (Clear); Bilirubin Urine Negative (Negative); Blood Urine Negative (Negative); Color Urine Light Yellow (Yellow); Glucose Urine UA Negative (Negative); Ketones Urine Negative (Negative); Leukocyte Esterase Ur 1+ LEU/UL (Negative); Nitrate Urine Negative (Negative); Protein Urine Negative (Negative); Urobilinogen Urine 0.2 mg/dL (0.2-1.0)
[2023-09-20 11:54] LABS: Add Urine Microscopic? YES; RBC Urine None seen /hpf (0-2)
[2023-09-20 11:55] LABS: Bacteria Urine 1+ /hpf; Squamous Epithelial Cell Urine Rare /hpf (Few)
== END 2023-09-20 11:08 | disposition home or self-care (01) ==
LOC: CHSLAB 11:08
PROVIDERS: Visit Provider Nurse Practitioner Family
DX: R39.9 Unspecified symptoms and signs involving the genitourinary system (principal)
CPT/HCPCS: 81001; 87086; 87088

== ENCOUNTER 2023-10-07 08:51 | Emergency (ER) | payer OTHER, SELFPAY ==
--- NOTE | ~2023-10-07 | XR_ITS ---
EXAMINATION: XR ribs LT 2V INDICATION: Left chest pain TECHNIQUE: 3 views of the left ribs were obtained. COMPARISON: 03/04/2022 FINDINGS: The left lung is free of acute opacities. Calcified nodules of the left lung are consistent with old granulomatous disease. No displaced rib fracture is identified. IMPRESSION: 1. No displaced rib fracture identified. Reviewed, dictated and finalized at location B. N DIRECTOR
--- NOTE | ~2023-10-07 | XR_ITS ---
EXAMINATION:XR_[id number]_CR DATE: 10/07/2023 09:49 INDICATION: Neck pain TECHNIQUE: AP, lateral, lateral swimmers and odontoid views of the cervical spine are provided. COMPARISON: None FINDINGS: Alignment is normal. The odontoid process is intact. No fracture is identified. There is se helene loss of intervertebral disc space height at C5-6. There is multilevel severe facet and uncoverte bral joint osteoarthritis. Prevertebral soft tissues are normal. IMPRESSION: 1. Severe cervical spondylosis without acute findings. Reviewed, dictated and finalized at location B. EPOINT WEB DEVELOPER
--- NOTE | ~2023-10-07 | XR_ITS ---
Lumbosacral Spine: AP and lateral views Clinical History: Pain Findings: There is dextroscoliosis of lumbar spine. No acute fracture or anteroposterior sublocation. There is moderate to advanced degenerative disc narrowing and facet arthropathy throughout the lumba r spine. The intervertebral disc spaces are preserved. The sacroiliac joints are normally outlined. Impression: Advanced degenerative spondylosis with dextro scoliosis. Reviewed, dictated and finalized at location M. CAR FOREMAN Impression: Advanced degenerative spondylosis with dextro scoliosis.
--- NOTE | ~2023-10-07 | XR_ITS ---
Right Knee Technique: AP and lateral views were obtained. Clinical History: Pain Findings: No fracture or dislocation is seen. Osseous alignment is anatomic. Joint spaces are preserv ed without degenerative or erosive change. Soft tissues are unremarkable. No joint effusion is seen. Impression: Unremarkable right knee radiographs. Reviewed, dictated and finalized at [facility]. MASTER ANALYST Impression: Unremarkable right knee radiographs.
--- NOTE | ~2023-10-07 | XR_ITS ---
Left Knee Technique: AP and lateral views were obtained. Clinical History: Pain Findings: No fracture or dislocation is seen. Osseous alignment is anatomic. Joint spaces are preserv ed without degenerative or erosive change. Soft tissues are unremarkable. No joint effusion is seen. Impression: Unremarkable left knee radiographs. Reviewed, dictated and finalized at location . [facility] [employer] Impression: Unremarkable left knee radiographs.
[2023-10-07 08:58] VITALS: BP 122/81; PULSE 89; RESP 18; TEMP 36.6; O2SAT 100
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
[2023-10-07] MEDS: HYDROcodone/acetaminophen (*CRX) 5-325 MG TABLET 2 TAB PO (09:43)
[2023-10-07 13:37] VITALS: BP 120/78; PULSE 84; RESP 20; TEMP 36.1; O2SAT 100
== END 2023-10-07 13:39 | disposition home or self-care (01) ==
PROVIDERS: Emergency Provider Family Medicine; PCP Nurse Practitioner Family
DX: S39.92XA Unspecified injury of lower back, initial encounter (principal); I12.9 Hypertensive chronic kidney disease with stage 1 through stage 4 chronic kidney disease, or unspecified chronic kidney disease; E11.22 Type 2 diabetes mellitus with diabetic chronic kidney disease; N18.4 Chronic kidney disease, stage 4 (severe); E78.5 Hyperlipidemia, unspecified; Z79.899 Other long term (current) drug therapy; W01.0XXA Fall on same level from slipping, tripping and stumbling without subsequent striking against object, initial encounter; Y92.009 Unspecified place in unspecified non-institutional (private) residence as the place of occurrence of the external cause
CPT/HCPCS: 71100; 72040; 72100; 73560; 99284; A9270

== ENCOUNTER 2023-11-10 15:03 | Outpatient (NON) | payer OTHER, SELFPAY ==
[2023-11-10 15:32] LABS: Appearance Urine Clear (Clear); Bilirubin Urine Negative (Negative); Blood Urine Negative (Negative); Color Urine Yellow (Yellow); Glucose Urine UA Negative (Negative); Ketones Urine Negative (Negative); Leukocyte Esterase Ur Trace LEU/UL (Negative); Nitrate Urine Negative (Negative); Protein Urine Negative (Negative); Specific Grav Ur 1.025 (1.010-1.020); Urobilinogen Urine 0.2 mg/dL (0.2-1.0)
[2023-11-10 15:37] LABS: Add Urine Microscopic? YES; Bacteria Urine 1+ /hpf; RBC Urine 0-2 /hpf (0-2); Squamous Epithelial Cell Urine Few /hpf (Few); WBC Urine 0-3 /hpf (0-3)
== END 2023-11-10 15:04 | disposition home or self-care (01) ==
PROVIDERS: Visit Provider Nurse Practitioner Family
DX: Z87.898 Personal history of other specified conditions (principal)
CPT/HCPCS: 81001

== ENCOUNTER 2023-12-26 13:05 | Outpatient (CLI) | payer OTHER, SELFPAY ==
[2023-12-26 19:13] LABS: Appearance Urine Clear (Clear); Bilirubin Urine Negative (Negative); Blood Urine Negative (Negative); Color Urine Light Yellow (Yellow); Glucose Urine UA Negative (Negative); Ketones Urine Negative (Negative); Leukocyte Esterase Ur Negative (Negative); Nitrate Urine Negative (Negative); Protein Urine Negative (Negative); Specific Grav Ur <= 1.005 (1.010-1.020); Urobilinogen Urine 0.2 mg/dL (0.2-1.0)
[2023-12-26 19:14] LABS: Add Urine Microscopic? NO
== END 2023-12-26 13:06 | disposition home or self-care (01) ==
LOC: CHSLAB 13:06
PROVIDERS: PCP Nurse Practitioner Family; Visit Provider Nurse Practitioner Family
DX: R44.1 Visual hallucinations (principal); R41.0 Disorientation, unspecified; F03.90 Unspecified dementia, unspecified severity, without behavioral disturbance, psychotic disturbance, mood disturbance, and anxiety
CPT/HCPCS: 81003; 87086

== ENCOUNTER 2024-02-03 08:19 | Outpatient (CLI) | payer OTHER, SELFPAY ==
--- NOTE | ~2024-02-03 | MM_ITS ---
EXAMINATION: MM screening james BI w mary ann HISTORY: Screening mammogram TECHNIQUE: Craniocaudal and mediolateral oblique 3-D tomosynthesis images were obtained and synthetic 2-D images were generated. CAD analysis was submitted and interpreted. COMPARISON: 01/31/2023, 01/28/2022, 01/27/2021 bilateral screening mammogram examinations BREAST PARENCHYMAL COMPOSITION: There are scattered areas of fibroglandular density. FINDINGS: There is no evidence of suspicious mass, calcification, or architectural distortion to sugg est malignancy in either breast. There has been no suspicious interval change. IMPRESSION: 1. No mammographic evidence of malignancy. 2. Recommend routine screening mammography in one year. BI-RADS Category 1: Negative Reviewed, dictated and finalized at location A. FLOOR ATTENDANT
== END 2024-02-03 08:20 | disposition home or self-care (01) ==
LOC: CHSIMG 08:21
PROVIDERS: PCP Nurse Practitioner Family; Visit Provider Nurse Practitioner Family
DX: Z12.31 Encounter for screening mammogram for malignant neoplasm of breast (principal)
CPT/HCPCS: 77063; 77067

== ENCOUNTER 2024-11-09 10:52 | Outpatient (CLI) | payer OTHER, SELFPAY ==
[2024-11-09 11:12] LABS: Basophils Absolute Auto 0.08 K/mm3 (0.00-0.10); Basophils Percent Auto 1.1 % (0.0-1.0); Eosinophils Absolute Auto 0.17 K/mm3 (0.02-0.50); Eosinophils Percent Auto 2.2 % (1.0-6.0); Hematocrit 37.1 % (35.0-42.0); Hemoglobin 12.5 g/dL (11.7-13.8); Immature Granulocyte Absolute 0.02 K/mm3 (0.00-0.00); Immature Granulocyte Percent A 0.3 % (0.0-0.0); Lymphocytes Absolute Auto 2.24 K/mm3 (1.10-4.50); Lymphocytes Percent Auto 29.6 % (18.0-42.0); Mean Corpuscular HGB Conc 33.7 g/dL (32-36); Mean Corpuscular Hemoglobin 31.4 pg (27.0-31.0); Mean Corpuscular Volume 93.2 fL (78.0-102.0); Mean Platelet Volume 10.6 fl (9.2-11.8); Monocytes Percent Auto 10.6 % (2.0-11.0); Neutrophils Absolute Auto 4.26 K/mm3 (1.70-7.20); Neutrophils Percent Auto 56.2 % (50.0-70.0); Platelet Count Result 211 K/mm3 (150-420); Red Blood Count 3.98 M/mm3 (4.20-5.40); Red Cell Distribution Width 12.8 % (11.6-14.4); White Blood Count 7.6 K/mm3 (4.8-10.8)
[2024-11-09 11:19] LABS: Hemoglobin A1C 6.1 % (<5.7)
[2024-11-09 12:47] LABS: Alanine Aminotransferase 26 U/L (14-59); Albumin Level 3.7 g/dL (3.4-5.0); Alkaline Phosphatase 80 U/L (46-116); Anion Gap 11 mmol/L (4-12); Aspartate Amino Transferase 16 U/L (15-37); Bilirubin,Total 0.5 mg/dL (0.00-1.00); Blood Urea Nitrogen 32 mg/dL (7-18); Calcium 9.1 mg/dL (8.5-10.1); Carbon Dioxide 23 mmol/L (21-32); Chloride 106 mmol/L (98-108); Cholesterol 157 mg/dL (0-200); Estimated Glomerular Filt Rate 29; Glucose 112 mg/dL (70-99); HDL Direct 64 mg/dL (40-60); LDL Cholesterol Calculated 75 mg/dL (<130); Osmolality Calculated 297 mOsm/kg (285-295); Potassium 4.5 mmol/L (3.5-5.1); Sodium 140 mmol/L (136-145); Thyroid Stimulating Hormone 2.32 uIU/mL (0.36-3.74); Total Protein 6.4 g/dL (6.4-8.2); Triglycerides 89 mg/dL (0-150)
== END 2024-11-09 10:53 | disposition home or self-care (01) ==
LOC: CHSLAB 10:54
PROVIDERS: PCP Nurse Practitioner Family; Visit Provider Nurse Practitioner Family
DX: E11.9 Type 2 diabetes mellitus without complications (principal); Z79.4 Long term (current) use of insulin
CPT/HCPCS: 36415; 80053; 80061; 83036; 84443; 85025

== ENCOUNTER 2024-12-11 14:11 | Outpatient (NON) | payer OTHER, SELFPAY ==
[2024-12-11 14:21] LABS: Add Urine Microscopic? YES; Appearance Urine Clear (Clear); Bilirubin Urine Negative (Negative); Blood Urine Negative (Negative); Color Urine Light Yellow (Yellow); Glucose Urine UA Negative (Negative); Ketones Urine Negative (Negative); Leukocyte Esterase Ur Trace LEU/UL (Negative); Nitrate Urine Negative (Negative); Protein Urine Negative (Negative); Specific Grav Ur 1.015 (1.010-1.020); Urobilinogen Urine 0.2 mg/dL (0.2-1.0)
[2024-12-11 14:28] LABS: Bacteria Urine None seen /hpf; RBC Urine None seen /hpf (0-2); Squamous Epithelial Cell Urine Rare /hpf (Few); WBC Urine None seen /hpf (0-3)
== END 2024-12-11 14:12 | disposition home or self-care (01) ==
LOC: CHSLAB 14:13
PROVIDERS: Visit Provider Nurse Practitioner Family
DX: R30.9 Painful micturition, unspecified (principal)
CPT/HCPCS: 81001

== ENCOUNTER 2025-01-25 08:32 | Outpatient (CLI) | payer OTHER, SELFPAY ==
[2025-01-25 09:12] LABS: Hemoglobin A1C 6.1 % (<5.7)
[2025-01-25 09:13] LABS: Creatinine Urine 77.19 mg/dL (40-278); MALB Creatinine Ratio 16.8 mg/g (0-30); Microalbumin Urine Random < 13.0 mg/L
== END 2025-01-25 08:33 | disposition home or self-care (01) ==
PROVIDERS: PCP Nurse Practitioner Family; Visit Provider Nurse Practitioner Family
DX: E11.9 Type 2 diabetes mellitus without complications (principal)
CPT/HCPCS: 36415; 82043; 83036

== ENCOUNTER 2025-09-25 10:51 | Outpatient (CLI) | payer OTHER, SELFPAY ==
--- OUTSIDE RECORDS SUMMARY | 2015-04-02 05:30 | XMS_ITS | Continuity of Care Document ---
Author Organization [facility] Address [address] [place] [address] Phone Care Team Providers Care Database Analyst Name Role Phone Oberreiter OD, Kylah Unavailable [...] daily into the right eye - Active BYETTA (unknown strength) Not Available - Active VITAMIN D3 (unknown strength) Not Available - Active CLARITIN (unknown strength) Not Available - Active CYCLOBENZAPRINE HCL (unknown strength) Not Available - Active STANBACK ANALGESIC (unknown strength) Not Available - Active LISINOPRIL (unknown strength) Not Available - Active RANITIDINE HCL (unknown strength) Not Available - Active LIPITOR (unknown strength) Not Available - Active HYDROCHLOROTHIAZIDE (unknown strength) Not Available - Active METOPROLOL [...] Diagnoses Date Provider Providers Copied on Encounter [facility], [address] [place] [address], [id number] , tel:[phone] [facility] symptoms improving per patient (chief complaint) Conjunctivitis, unspecifiedPenetr ating eye injury 6 5 Oberreiter Kylah. [address], [place], [place], [id number], [place]. [phone] Referring Provider: Price Ruiz, [address] [place] [address], [id number]. tel:[phone] [facility], [address] [place] [address], [id number] , tel:[phone] [facility] pain and redness (chief complaint) Conjunctivitis, unspecified 5 Oberreiter Kylah. [address], [place], [place], [id number], [place]. [phone] Referring Provider: Price Ruiz, [address] [place] [address], [id number]. tel:[phone] [facility], [address] [place] [address], [id number] , [place] tel:[phone] [facility] Diabetes Examination (chief complaint)no problems with vision and no complaints (chief complaint) Senile nuclear sclerosisTear film insufficiency, unspecifiedRecent retinal detachment, total or subtotalAdult onset diabetesAfter-cat aract, obscuring vision Oct- 4 Oberreiter Kylah. [address] , [place], [place], [id number], [place]. tel:[phone] Referring Provider: Price Ruiz, [address] [place] [address], [id number]. tel:[phone] [facility], [address] [place] [address], [id number] , [place] tel:[phone] [facility] Senile nuclear sclerosisDiabetes Mellitus Type 2, UncomplicatedTear film insufficiency, unspecifiedMyopia Presbyopia Dec-0 9-201 3 Oberreiter Kylah. [address] [facility], [place], [place], [id number], [place]. tel:[phone] Referring Provider: Price Ruiz, [address] [place] [address], [id number]. tel:[phone] [facility], [address] [place] [address], [id number] , [place] tel:[phone] [facility] Diabetes Mellitus Type 2, UncomplicatedSeni le nuclear sclerosis Oct-0 2 Aprahamian Freda. [address] [place] [address], [id number], [place]. tel:[phone] Referring Provider: Price Ruiz, [address] [place] [address], [id number]. tel:[phone] [facility], [address] [place] [address], [id number] , [place] tel:[phone] [facility] Diabetes Mellitus Type 2, UncomplicatedSeni le nuclear sclerosis Hakeem-0 201 2 Aprahamian Freda. [address] [place] [address], [id number], [place]. tel:[phone], [id number] , [place] tel:[phone] [facility] Diabetes Mellitus Type 2, UncomplicatedSeni le nuclear sclerosis Nov- 1-201 1 Aprahamian Freda. [address] [place] [address], [id number], [place]. tel:[phone] [facility], [address] [place] [address], [id number] , tel:[phone] [facility] No Information 0 2- 1 Aprahamian Freda. [address] [place] [address], [id number], . tel:[phone] [facility], [address] [place] [address], [id number] , tel:[phone] [facility] No Information Feb- 1 Aprahamian Freda. [address] [place] [address], [id number], [place]. tel:[phone] [facility], [address] [place] [address], [address] [place] [address] , tel:[phone] [facility] No Information 0 Aprahamian Freda. [address] [place] [address], [address] [place] [address], [place]. tel:[phone] [facility], [address] [place] [address], [id number] , tel:[phone] [facility] No Information 0 Aprahamian Freda. [address] [place] [address], [id number], . tel:[phone] Family History Family Member Type Diagnosis Age At Onset Mother Problem (finding) Problem (finding) Family history of catar act Problem (finding) Family history of diabe alex, HBP Problem (finding) No Family hist ory of glaucoma, mac degeneration Problem (finding) No Family hist ory of Stroke,heart dz, respiratory dz Payers Payer name Insurance type Covered constitution party ID Authorvianeya tibrenden(s) [place] [id number] [facility] [id number] Social History Type Description Quantity Date Captured [...] Instruction Additional Infor niall Per specialist in [facility]. Rela hany to Conjunctivitis, unspecified Follow up - Per spec ialist in [facility]. Related to Conjunctivitis, unspecified Impression/Plan - St [...] is to see a Retina Specialist in [place] for surgical consult and treatment. Pt is [...] with any problems. Related to Conjunctivitis, unspecified Follow up - Return i n 1 year with CLARA for Refract T & D. Related to Senile nuclear sclerosis Impression/Plan - Ca taract OS Progessing, but no need for surgery at this time. Will monitor yearly. PCO OD will continue to monitor Diabetes Neg PATIENT ACCOUNT REPRESENTATIVE Importance of maintaining healthy blood sugars to maximize ocular health discussed in detail with patient. Dry eye Pt is to continue Pred Forte QD OD and Art tear PRN OS. HX of RD iin OD, will continue to monitor. Related to Senile nuclear sclerosis - Return in 1 year w nitish CLARA for Ref T & D. Related [...] Will monitor yearly. 3. Diabetes OU: Neg PATIENT ACCOUNT REPRESENTATIVE: Importance of maintaining healthy blood sugars to [...] to monitor. - 1. Diabetes OU: Neg PATIENT ACCOUNT REPRESENTATIVE OU Importance of maintaining healthy blood sugars to maximize ocular health discussed in detail with patient.2. IOL OD: Dense PCO 3. Cataract OS: No surgery required4. Myopia, astigmatism, presbyopia OU: Change in Os refraction sill increase patient [facility]. New glasses Rx was given today. Educational materials provided:none needed. Related to Diabetes mellitus without mention of complication, - Return in 6 months with ADA for Ref T & D. Related to Senile nuclear sclerosis Diabetes mellitus wi thout mention of complication, OS. Condition: no retinopathy. Senile nuclear sclerosis OS. Condition: mild. - OS is very healthy. Just have a mild cataract OS, will watch for now. No diabetic retinopathy. IOP is fine. Related to Senile nuclear sclerosis - 6 mos for Refraction, T&D Rela hany to Senile nuclear sclerosis Diabetes mellitus wi [...] any changes. Related to Senile nuclear sclerosis Assessments Type Assessment Date assessment Conjunctivitis, unspecified impression Conjunctivitis, unsp ecified: 372.30 OD. Status: Chronic. Condition: will continue to monitor. assessment Penetrating eye injury 15 Patient Care Teams Name Effective Dates (start - stop) Status Members No Information
[2025-09-25 11:06] LABS: Hematocrit 39.1 % (35.0-42.0); Hemoglobin 13.1 g/dL (11.7-13.8); Immature Granulocyte Percent A 0.3 % (0.0-0.0); Lymphocytes Absolute Auto 2.30 K/mm3 (1.10-4.50); Mean Corpuscular HGB Conc 33.5 g/dL (32-36); Mean Corpuscular Hemoglobin 31.7 pg (27.0-31.0); Mean Corpuscular Volume 94.7 fL (78.0-102.0); Nucleated Red Blood Cells Absolute Auto 0.00 K/mm3 (0.00-0.00); Nucleated Red Blood Cells Perc 0.0 % (0-0.0); Platelet Count Result 223 K/mm3 (150-420); Red Blood Count 4.13 M/mm3 (4.20-5.40); White Blood Count 9.0 K/mm3 (4.8-10.8)
[2025-09-25 11:31] LABS: Alanine Aminotransferase 31 U/L (6-35); Albumin Level 4.7 g/dL (3.5-5.1); Alkaline Phosphatase 77 U/L (38-126); Anion Gap 11 mmol/L (4-12); Aspartate Amino Transferase 28 U/L (14-36); Bilirubin,Total 0.7 mg/dL (0.2-1.3); Blood Urea Nitrogen 34 mg/dL (7-17); Calcium 10.1 mg/dL (8.4-10.2); Carbon Dioxide 23 mmol/L (22-30); Chloride 106 mmol/L (98-107); Cholesterol 154 mg/dL (0-200); Estimated Glomerular Filt Rate 28; Glucose 138 mg/dL (65-110); HDL Direct 77 mg/dL; Osmolality Calculated 299 mOsm/kg (285-295); Potassium 4.6 mmol/L (3.4-5.0); Sodium 140 mmol/L (137-145); Total Protein 8.1 g/dL (6.3-8.2); Triglycerides 118 mg/dL (<150)
[2025-09-25 11:32] LABS: Add Urine Microscopic? YES; Appearance Urine Clear (Clear); Glucose Urine UA Negative (Negative); Leukocyte Esterase Ur 1+ LEU/UL (Negative); Nitrate Urine Negative (Negative); Specific Grav Ur 1.010 (1.010-1.020)
[2025-09-25 11:37] LABS: Hemoglobin A1C 6.2 % (<5.7)
[2025-09-25 12:02] LABS: Thyroid Stimulating Hormone Reflex 2.450 uIU/mL (0.465-4.68)
--- OUTSIDE RECORDS SUMMARY | 2025-09-25 12:22 | XMS_ITS | Clinical Summary ---
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 Name Role Phone Mariam Miller NP Primary Care Provider [phone] Allergies Active Allergy Reactions Criticality Noted Date Comments Adhesive Tape-Silicones Rash Medium 05/24/2018 Penicillins Rash Medium Medications aspirin 81 mg tabletIndicati ons:primary prevention of coronary heart disease Take 1 tablet (81 mg total) by mouth every morning Active atorvastatin (LIPITOR) 20 mg tabletIndicati ons:hyperlipid emia Take 1 tablet (20 mg total) by mouth daily before breakfast Active metoprolol tartrate (LOPRESSOR) 50 mg immediate release tabletIndicati ons:hypertensi on Take 1 tablet (50 mg total) by mouth every morning Active lisinopriL (PRINIVIL,ZEST RIL) 20 mg tabletIndicati ons:hypertensi on Take 1 tablet (20 mg total) by mouth daily before breakfast 3 8 Active amLODIPine (NORVASC) 5 mg tabletIndicati ons:hypertensi on Take 1 tablet (5 mg total) by mouth daily before breakfast Active furosemide (LASIX) 20 mg tabletIndicati ons:Edema,hype rtension Take 1 tablet (20 mg total) by mouth 3 (three) times a week Mon, Wed, Fri Active memantine (NAMENDA) 5 mg tabletIndicati ons:Moderate to Severe Alzheimer's Type Dementia Take 1 tablet (5 mg total) by mouth daily before breakfast 4 Active vitamin E 200 unit capsuleIndicat ions:psoriasis prevention Take 2 capsules (400 Units total) by mouth daily before breakfast Active calcitRIOL (ROCALTROL) 0.25 mcg capsuleIndicat ions:Vitamin D Deficiency Take 1 capsule (0.25 mcg total) by mouth once a week Tuesday Active acetaminophen (TYLENOL) 325 mg tablet Take 2 tablets (650 mg total) by mouth every 6 (six) hours as needed for pain Active calcium carbonate (TUMS) 500 mg (200 mg elemental calcium) chewable tabletIndicati ons:Heartburn Take 1 tablet/chew tab (500 mg total) by mouth daily as needed for indigestion or heartburn Active calcitRIOL (ROCALTROL) 0.25 mcg capsule TAKE 1 CAPSULE BY MOUTH 3X WEEKLY [id number]-[id number]-A RIDAY 4 Active OneTouch Delica Plus Lancet 33 gauge misc TEST UP TO THREE TIMES DAILY 4 Active cycloSPORINE (Restasis) 0.05 % ophthalmic emulsionIndica tions:Keratoco njunctivitis sicca Administer 1 drop into the left eye 2 (two) times a day 60 each 11 4 Active Ozempic 0.25 mg or 0.5 mg (2 mg/3 mL) pen injector injection 0.25 MG (0.368 ML) SUBCUTANEOUSLY WEEKLY FOR 4 WEEKS FOR 4 WEEKS 5 Active ciprofloxacin (CIPRO) 250 mg tablet Take 1 tablet (250 mg total) by mouth daily 5 Active Active Problems Problem Noted Date Diagnosed Date Acquired absence of eye 03/15/2017 Deformity, 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 Francie Zavala Medical History Medical History Date Comments Hypertension Diabetes Acid reflux CKD (chronic kidney disease) Blindness Right Eye Retinal detachment Right Eye Family History Medical History Relation Name Comments Cataracts Mother Anesthesia problems Neg Hx Glaucoma Neg Hx Macular degeneration Neg Hx Retinal detachment Neg Hx Relation Name Status Comments Mother Social History Tobacco Use Types Packs/Day Years Used Date Smoking Tobacco: Never Smokeless Tobacco: Never Alcohol Use Standard Drinks/Week Comments No 0 (1 standard drink = 0.6 oz pur e alcohol) AUDIT-C Answer Date Recorded Q1: How often do you have a drink containing alcohol? Never 04/11/2024 Q2: How many drinks containi ng alcohol do you have on a typical day when you are drinking? Patient does not drink Q3: How often do you have si x or more drinks on one occasion? Never 04/11/2024 Personal Safety Answer Date Recorded Have you ever been in or are you currently in a harmful physical or emotional relationship or is someone making you feel afraid or unsafe? Denies 04/11/2024 Comments No Sex and Gender Information Value Date Recorded Sex Assigned at Not on file Legal Sex Female 10:33 AM INBOUND SALES REPRESENTATIVE Gender Identity Not on file Sexual Orientation Not on file Obstetrics History Last Filed Vital Signs Vital Sign Reading Time Taken Comments Blood Pressure 141/71 04/11/2024 10:45 AM CDT Pulse 54 04/11/2024 10:45 AM CDT Temperature 36.6 C (97.9 F) 04/11/2024 10:04 AM CDT Respiratory Rate 12 04/11/2024 10:45 AM CDT Oxygen Saturation 100% 04/11/2024 10:45 AM CDT Inhaled Oxygen Concentration - - Weight 50.8 kg (112 lb 1.6 oz) 04/11/2024 7:45 A M CDT Height 162.6 cm (5' 4) 04/11/2024 7:45 AM CDT Body Mass Index 19.24 04/11/2024 7:45 AM CDT Plan of Treatment Health Maintenance Due Date Last Done Comments Depression Screening 1945 Osteoporosis Screening-Bone Density Scan 1944 DTaP/Tdap/Td Vaccine (1 - Tdap) 1955 Hepatitis B Screening 1962 Zoster Vaccine (1 of 2) 1994 Well Visit 65+ 2009 Fall Risk Assessment 04/11/2025 04/11/2024 Influenza Vaccine (#1) 2025 10/19/2016, 2011 Pneumococcal vaccine 65+ Completed 04/04/2015, 06/2015 Medical Devices Implanted Type Area Bracelet And Brooch Maker Device Identifier Shelf Expiration Date Model / Serial / Lot [employer] Lens Tecnis Eyhance Iol [id number] - [id number] - [id number] Implanted:Qty: 1 on 04/11/2024 by Danish Zavala MD at [facility] Lens Left: Eye [employer] [id number] 02/18/2026 [id number] / [id number] / [place] Craniomaxillofacial [id number] Medpor [id number] Enophthalmos Wedge Craniomaxillofacial Right - [id number] Implanted:Qty: 1 on 06/21/2018 by Hans Lara MD at [facility] [employer] Cran[employer]axillofacial 04/27/2020 [id number] / / [id number] Description:Medpor Enophthal mos Wedge-Large Right Insurance MEDICARE [facility] Care Teams Test Boring Crew Chief Relationship Specialty Start Date End Date Mariam Miller NP [address] [place] [address] PCP - General Nurse Practitioner 02/28/24
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
== END 2025-09-25 10:52 | disposition home or self-care (01) ==
LOC: CHSLAB 10:51
PROVIDERS: PCP Nurse Practitioner Family; Visit Provider Nurse Practitioner Family
DX: E11.9 Type 2 diabetes mellitus without complications (principal); Z79.4 Long term (current) use of insulin; R30.0 Dysuria
CPT/HCPCS: 36415; 80053; 80061; 81001; 83036; 84443; 85025; 87086

== ENCOUNTER 2025-10-02 14:14 | Outpatient (CLI) | payer OTHER, SELFPAY ==
--- OUTSIDE RECORDS SUMMARY | 2015-04-02 04:30 | XMS_ITS | Continuity of Care Document ---
Author Organization [facility] Address [address] [place] [address] Phone Care Team Providers Care Cargo Service Supervisor Name Role Phone Oberreiter OD, Kylah Unavailable Unavailabl e Allergies, Adverse Reactions, Alerts Substance Reaction Status Criticality tobramycin Active No Information penicillin G Active No Information Medications Medication Instructions Dosage Effective Dates (start - stop) Status Comments ofloxacin 0.3 % eye drops instill 1 drop by ophthalmic route 4 times every day into affected eye(s) 1.00 drop - Active Pred Forte 1 % eye drops,suspension instill 1 drop 4 x daily into the right eye - Active VITAMIN D3 (unknown strength) Not Available - Active BYETTA (unknown strength) Not Available - Active CLARITIN (unknown strength) Not Available - Active CYCLOBENZAPRINE HCL (unknown strength) Not Available - Active HYDROCHLOROTHIAZIDE (unknown strength) Not Available - Active LIPITOR (unknown strength) Not Available - Active RANITIDINE HCL (unknown strength) Not Available - Active LISINOPRIL (unknown strength) Not Available - Active STANBACK ANALGESIC (unknown strength) Not Available - Active METOPROLOL TARTRATE (unknown strength) Not Available - Active Procedures Procedure Date EYE EXAM ESTABLISHED PAT, MEDICAL EYE EXAM ESTABLISHED PAT, MEDICAL EYE EXAM ESTABLISHED PAT, MEDICAL EYE EXAM ESTABLISHED PATIENT, MEDICAL De REFRACTION NO UPDATE EYE EXAM ESTABLISHED PATIENT, MEDICAL De REFRACTION UPDATE EYE EXAM ESTABLISHED PATIENT, MEDICAL Ju REFRACTION NO UPDATE EYE EXAM ESTABLISHED PATIENT, MEDICAL No v2011 EYE EXAM ESTABLISHED PATIENT, MEDICAL Ap REFRACTION NO UPDATE EYE EXAM ESTABLISHED PATIENT, MEDICAL Oc REFRACTION NO UPDATE EYE EXAM ESTABLISHED PAT, MEDICAL Advance Directives Directive Yes / No Effective Date File Name No Information Encounters Encounter Description Practice Location Reason(s) For Visit Diagnoses Date Provider Providers Copied on Encounter [facility], [address] [place] [address], [id number] , tel:[phone] [facility] symptoms improving per patient (chief complaint) Conjunctivitis, unspecifiedPenetr ating eye injury 6 5 Oberreiter Kylah. [address], [place], [place], [id number], [place]. [phone] Referring Provider: Price Ruiz, [address] [place] [address], [id number]. tel:[phone] [facility], [address] [place] [address], [id number] , tel:[phone] [facility] pain and redness (chief complaint) Conjunctivitis, unspecified 5 Oberreiter Kylah. [address], [place], [place], [id number], [place]. [phone] Referring Provider: Price Ruiz, [address] [place] [address], [id number]. tel:[phone] [facility], [address] [place] [address], [id number] , [place] tel: [phone] [facility] Diabetes Examination (chief complaint)no problems with vision and no complaints (chief complaint) Senile nuclear sclerosisTear film insufficiency, unspecifiedRecent retinal detachment, total or subtotalAdult onset diabetesAfter-cat aract, obscuring vision Oct- 4 Oberreiter Kylah. [address] , [place], [place], [id number], [place]. tel:[phone] Referring Provider: Price Ruiz, [address] [place] [address], [id number]. tel:[phone] [facility], [address] [place] [address], [id number] , [place] tel:[phone] [facility] Senile nuclear sclerosisDiabetes Mellitus Type 2, UncomplicatedTear film insufficiency, unspecifiedMyopia Presbyopia Dec-0 9-201 3 Oberreiter Kylah. [address] [facility], [place], [place], [id number], [place]. tel:[phone] Referring Provider: Price Ruiz, [address] [place] [address], [id number]. tel:[phone] [facility], [address] [place] [address], [id number] , [place] tel:[phone] [facility] Diabetes Mellitus Type 2, UncomplicatedSeni le nuclear sclerosis Oct-0 2 Aprahamian Freda. [address] [place] [address], [id number], [place]. tel:[phone] Referring Provider: Price Ruiz, [address] [place] [address], [id number]. tel:[phone] [facility], [address] [place] [address], [id number] , [place] tel:[phone] [facility] Diabetes Mellitus Type 2, UncomplicatedSeni le nuclear sclerosis Hakeem-0 201 2 Aprahamian Freda. [address] [place] [address], [id number], [place]. tel:[phone], [id number] , [place] tel:[phone] [facility] Diabetes Mellitus Type 2, UncomplicatedSeni le nuclear sclerosis Nov- 1-201 1 Aprahamian Freda. [address] [place] [address], [id number], [place]. tel:[phone] [facility], [address] [place] [address], [id number] , tel:[phone] [facility] No Information 0 2- 1 Aprahamian Freda. [address] [place] [address], [id number], . tel:[phone] [facility], [address] [place] [address], [id number] , tel:[phone] [facility] No Information Feb- 1 Aprahamian Rfeda. [address] [place] [address], [id number], [place]. tel:[phone] [facility], [address] [place] [address], [address] [place] [address] , tel:[phone] [facility] No Information 0 Aprahamian Freda. [address] [place] [address], [address] [place] [address], [place]. tel:[phone] [facility], [address] [place] [address], [id number] , tel:[phone] [facility] No Information 0 Aprahamian Freda. [address] [place] [address], [id number], . tel:[phone] Family History Family Member Type Diagnosis Age At Onset Problem (finding) Family history of catar act Problem (finding) Family history of diabe alex, HBP Problem (finding) No Family hist ory of glaucoma, mac degeneration Problem (finding) No Family hist ory of Stroke,heart dz, respiratory dz Mother Problem (finding) Payers Payer name Insurance type Covered democrat ID Authorvianeya tibrenden(s) [place] [id number] [facility] [id number] Social History Type Description Quantity Date Captured Comments Alcohol Use Details No Caffeine Use Details Tobacco Use Status Never smoked tobacco 2014 Smoking Status Never smoker Non-Smoking Tobacco Use Details : No Details Available : No Details Available Sex Female Chief Complaint And Reason For Visit From encounter dated '04/02/2015 10:30'. symptoms improving per patient (chief complaint). Description: The 69 Year old female presents for F/U Bacterial conjunctivitis OD. States symptoms improving per patient in the right eye. since last exam 1 week ago. Patient reports mild discharge and discomfort. Patient is using Ofloxacin OD QID, and Pred Forte OD QID. Reason For Referral Reason For Referral No Information History Of Present Illness Encounter Date Complaint History Of Prese nt Illness symptoms improving per patient T he 69 Year old female presents for F/U Bacterial conjunctivitis OD. States symptoms improving per patient in the right eye. since last exam 1 week ago. Patient reports mild discharge and discomfort. Patient is using Ofloxacin OD QID, and Pred Forte OD QID. pain and redness The 69 Year old female presents for mattering, watering, itching, pain and redness in the right eye. It started about 1 month(s) ago. The onset was sudden. It affects right side. It occurs constantly. The condition is worsening. Pt went to doctor and they said it was conjunctivitis OD and gave her Tobramycin OD Q 2hrs. The gtts made her OD swell and pt d/c'd the gtt and is using no gtts as of now. Pt is very light sensitive and very dizzy sice the eye problem. Diabetes Examination The 69 Year old female presents for Diabetes (IDDM) Examination in the right eye and left eye and f/u Cataract OS, IOL OD, Dry eye OU and Myopia OU and Hx of Detached Retina OD. no problems with vis ion and no complaints The patient reports no problems with vision and no complaints in the right eye and left eye. since last exam. Vision good, stable and constant D & N c. The patient denies pain or discomfort. Pt is using Pred Forte once or twice daily PRN OD. Pt has ordered new glasses and per pt they should be in sometime soon. Pt goes elsewhere for glasses. Functional Status Date Functional Assessmen t No Information Instructions Date Instruction Additional Infor niall Per specialist in [facility]. Rela hany to Conjunctivitis, unspecified Follow up - Per spec ialist in [facility]. Related to Conjunctivitis, unspecified Impression/Plan - St ill seeing signs of redness and irritation OD. Pt has history of retinal deatchment in the OD and has a scleral buckle. We noticed at today's exam that the Scleral buckle has broke and is penetrating through conjuntiva inferiorly OD. Od is soft, but not seeing any signs of leakage. Pt is to see a Retina Specialist in [place] for surgical consult and treatment. Pt is to continue using Ofloxacin QID OD and Pred Forte OD. Will call pt with appt time and information. Related to Conjunctivitis, unspecified Return in 1 week wit h CLARA for T, Slamp. Related to Conjunctivitis, unspecified Follow up - Return i n 1 week with CLARA for T, Slamp. Related to Conjunctivitis, unspecified Impression/Plan - 1. Bacterial Conjunctivitis OD: Infection is significant. Pt had a reaction to Tobramycin. Pt is to start using Ofloxacin QID OD and Pred Forte QID OD. See pt back in 1 week for f/u. Pt instructed to call right away with any problems. Related to Conjunctivitis, unspecified Impression/Plan - Ca taract OS Progessing, but no need for surgery at this time. Will monitor yearly. PCO OD will continue to monitor Diabetes Neg COPS Importance of maintaining healthy blood sugars to maximize ocular health discussed in detail with patient. Dry eye Pt is to continue Pred Forte QD OD and Art tear PRN OS. HX of RD iin OD, will continue to monitor. Related to Senile nuclear sclerosis Follow up - Return i n 1 year with CLARA for Refract T & D. Related to Senile nuclear sclerosis - Return in 1 year w ith CLARA for Ref T & D. Related to Senile nuclear sclerosis Senile nuclear scler osis OS. Condition: will continue to monitor. Diabetes mellitus without mention of complication, OS. Condition: will continue to monitor. Dry eye OU. Condition: established, stable. Myopia OU. Condition: established, stable. Presb - 1. Refractive error OU: No change in glasses Rx. Duplicate Rx given.2. Cataract OS: Progessing, but no need for surgery at this time. Will monitor yearly. 3. Diabetes OU: Neg COPS: Importance of maintaining healthy blood sugars to maximize ocular health discussed in detail with patient.4. Dry eye OU: Pt is to continue Pred Forte PRN OD and Art tear PRN OS. Pt is Cl with any problems. Related to Senile nuclear sclerosis - Return in 1 year w nitish ELIZABETH for Ref T & D. Related to Diabetes mellitus without mention of complication, Diabetes mellitus wi thout mention of complication, OS. Condition: will continue to monitor. Senile nuclear sclerosis OS. Condition: will continue to monitor. - 1. Diabetes OU: Neg COPS OU Importance of maintaining healthy blood sugars to maximize ocular health discussed in detail with patient.2. IOL OD: Dense PCO 3. Cataract OS: No surgery required4. Myopia, astigmatism, presbyopia OU: Change in Os refraction sill increase patient [facility]. New glasses Rx was given today. Educational materials provided:none needed. Related to Diabetes mellitus without mention of complication, Diabetes mellitus wi thout mention of complication, OS. Condition: no retinopathy. Senile nuclear sclerosis OS. Condition: mild. - OS is very healthy. Just have a mild cataract OS, will watch for now. No diabetic retinopathy. IOP is fine. Related to Senile nuclear sclerosis - Return in 6 months with ADA for Ref T & D. Related to Senile nuclear sclerosis Diabetes mellitus wi thout mention of complication, OS Senile nuclear sclerosis OS Condition: established, stable. Symptoms: will continue to monitor. - See no DR: OS. NO view of OD. Keep BSL's under good control. Follow up with PMD in order to find best plan of action, whether it involves use of insulin or oral meds.See early cat in OS, but surgery is not necessary just yet. Pt. to be evaluated in 6 mos again for Refract, T&D. Call if any changes. Related to Senile nuclear sclerosis - 6 mos for Refraction, T&D Rela hany to Senile nuclear sclerosis Assessments Type Assessment Date assessment Conjunctivitis, unspecified impression Conjunctivitis, unsp ecified: 372.30 OD. Status: Chronic. Condition: will continue to monitor. assessment Penetrating eye injury 15 Patient Care Teams Name Effective Dates (start - stop) Status Members No Information
--- NOTE | ~2025-10-02 | DEXA_ITS ---
? Bone Density Report? Name:? parvin pagan Patient ID:??? [id number] Age:? 80 Sex:? Female Ethnicity:? White Date of : 1945 Indication: postmenopausal; screening for osteoporosis; hysterectomy; Referring Provider: MONTEZ GRIDER Study: Bone densitometry was performed. Exam Date: October 02, 2025 Accession number: [id number] Bone Density: Region? BMD??? T-score? Z-score?? Classification AP Spine(L1-L4)? 1.156??? 1.0?3.7? Normal Femoral Neck (Left)? 0.657?? -1.7? 0.6? Osteopenia Total Hip (Left)? 0.731?? -1.7? 0.4? Osteopenia Femoral Neck (Right)? 0.633?? -1.9? 0.4? Osteopenia Total Hip (Right)? 0.731?? -1.7? 0.4? Osteopenia Femoral Neck Mean? 0.645?? -1.8? 0.5? Osteopenia Total Hip Mean? 0.731?? -1.7? 0.4? Osteopenia World Health Organization criteria for BMD impression classify patients as: Normal (T-score at or above -1.0), Osteopenia (T-score between -1.0 and -2.5), or Osteoporosis (T-score at or below -2.5). 10-year Fracture Risk(1): Major Osteoporotic Fracture? 14% Hip Fracture? 4.2% Reported Risk Factors: [place] (), Neck BMD=0.633, BMI=21.4 (1) FRAX? Version 3.08. Fracture probability calculated for an untreated patient. Fracture probability may be lower if the patient has received treatment. Clinical Information Provided by Patient: Has used the following medications: Vitamin D Has the following medical conditions: Hysterectomy Patient maximum height was 62 Menopause Age: 47 No regular weight bearing exercise Drinks caffeinated beverages Onset of menses at age 12 Number of children 3 Impression: The patient has low bone mass, based on the Right Femoral Neck T- score. Discussion: BONE DENSITY IS LOW AT ONE OR MORE SKELETAL SITES. This patient's lowest T-score is low at one or more skeletal sites.? It meets the World Health Organization's (WHO) criteria for ?low bone mass?? (T-score between -1.0 and -2.5).? The patient's 10-year risk of fracture as calculated by FRAX is less than the threshold where pharmacological therapy is recommended by the National Osteoporosis Foundation (NOF).? However, all treatment decisions require clinical judgment and consideration of individual patient factors, including patient preferences, comorbidities, previous drug use, risk factors not captured in the FRAX model (e.g., frailty, falls, vitamin D deficiency, increased bone turnover, interval significant decline in bone density) and possible under or overestimation of fracture risk by FRAX. The patient should follow a healthful lifestyle (good nutrition with adequate calcium and vitamin D, and appropriate weight-bearing exercise). Follow-Up: Consider repeating this study in 2 to 3 years to reassess this patient's status, or sooner if there is some new clinical indication. Reported by: SABINA on 10/02/2025 3:02:00 PM.
--- OUTSIDE RECORDS SUMMARY | 2025-10-03 13:49 | XMS_ITS | Clinical Summary ---
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 Gender Identity Not on file Sexual Orientation Not on file Last Filed Vital Signs Vital Sign Reading [...] 04/04/2015, 06/2015 Medical Devices Implanted Type Area Device Processing Engineer Device Identifier Shelf Expiration Date Model / Serial / Lot [employer] Lens Tecnis Eyhance Iol [id number] - [id number] - [id number] Implanted:Qty: 1 on 04/11/2024 by Danish Zavala MD at [facility] Lens Left: Eye [employer] [id number] 02/18/2026 [id number] / [id number] / Fatmata Craniomaxillofacial 9544 Medpor [id number] Enophthalmos Wedge Craniomaxillofacial Right - [id number] Implanted:Qty: 1 on 06/21/2018 by Hans Lara MD at [facility] [place] Craniomaxillofacial 04/27/2020 [id number] / / [id number] Description:Medpor Enophthal mos Wedge-Large Right Insurance MEDICARE IDMO [facility] Care Teams Clinical Support Nurse Relationship Specialty Start Date End Date Mariam Miller NP [address] [place] [address] PCP - General Nurse Practitioner 02/28/24
--- OUTSIDE RECORDS SUMMARY | 2025-10-03 13:50 | XMS_ITS | Data Portability ---
Author Organization [facility], [address] [place] [address] Neurology ([place]) Address [address] [address] Assessment Encounter Date Assessment Date Assessment LastModified [...] on this date of service including both hdch-jm-mugx and eku-efll-md-face time excluding any separately reportable services. lida [...] on this date of service including both apcn-ye-whho and xkg-whfs-th-face time excluding any seprately reportable services. mariluz [...] on this date of service including both xeux-wd-vrof and vjz-qzap-uw-face time excluding any separately reportable services. beth chackolfel Not available 05/14/2025 06:46:25 Plan of Treatment Reminders Order Date Submit Date Provider Last Modified By Organization Details Last Modified Time Details Appointments Establish ed Patient 15.EST 2025 10:00A M Dr. Raine Perkins Not available Not available Not available Lab TSH, serum, reflex free T4 2023 024 [facility], [address], [place], [address], 07/26/2024 10:47:42 vitamin B12, serum 2023 024 [facility], [address], [place], [address], 07/26/2024 10:47:42 vitamin B6 (pyridoxi ne), plasma 2023 024 [facility], [facility] [address], [place], [address], 07/26/2024 10:47:42 urinalysi s complete, reflex culture 2023 024 [facility], [address], [place], [address], 07/26/2024 10:47:42 Referral None recorded. Procedures None recorded. Surgeries None recorded. Imaging MRI, brain, w/o contrast 2023 024 [facility], [address], [place], [address], 07/13/2024 15:53:23 Medication Orders None recorded. Patient TargetsNo targets recorded. Patient Instructions Encounter Date Encounter Id Patient Instructions Last Modified By Organization Details Last Modified Time 12/17/2024 [id number] rhythm strip, EKG* [email or web address] Not available 12/24/2024 16:28:20 Reason for Referral None Reported. Results Created Date Observation Date Name Description Value Unit Range Abnormal Flag Note LastModifiedBy Organization Detail LastModifiedTime 01/15/20 25 01/21/2025 refer ence lab test panel APO E alzheimer's risk Not Available S[facility] On y [facility] [address] [place] [address], [id number], 01/21/2025 19:37:43 01/15/20 25 01/21/2025 refer ence lab test panel APO E genotyping E4/E4 (TWO COPIES OF THE APOE4 VARIAN T) Not Available Sd Only - [facility] Laboratory [address] [place] [address], [id number], 01/21/2025 19:37:43 01/15/20 25 01/21/2025 refer ence lab test panel APO E methodology Patie nt DNA is assay ed for the APOE genot ype by PCR ampli ficat ion of a speci fic regio n in exon 4 of the APOE gene follo wed by diges tion with restr ictio n enzym e School Plant Consultant I and separ ation of fragm ents [...] , E2/E4 , E3/E4 . Not Available [facility] [address] [place] [address], [address], 01/21/2025 19:37:43 01/15/20 25 01/21/2025 refer ence [...] pleas e call Esote dulce maria at [phone]. Not Available [facility] Only [facility] [address] [place] [address], [address], 01/21/2025 19:37:43 01/15/20 25 01/21/2025 refer ence [...] e eric cteri stics deter mined by [employer] rp. It has not been clear ed [...] th[place]: Unive rsity of [place]. Last ania ed 2013. Michelle HART et al. Luis ic couns eling and testi ng for Alzhe heaven disea se: Joint pract ice guide lines of the Dimitris Perea ge of Medic al Luis ics and the Alize Age ty of Luis ic Couns elors . Luis in Med 2011; 13(6) 572-6 05. Schip per HM. Apoli popro tein E: Impli catio ns for AD neuro biolo gy, epide miolo gy and risk asses sment . Neuro biolo gy of Aging 2011; 32:77 8-790 Not Available Sc Only - Sc Laboratory [facility] [address], [address], 01/21/2025 19:37:43 07/12/20 24 06/13/2023 imagi ng/di agnos tic resul t No observ ation record ed. [email or web address] Not Available 07/12/2024 04:54:42 07/13/20 24 06/08/2024 MRI, brain , w/o contr ast No observ ation record ed. [facility] [address], [place], [address], 07/17/2024 16:21:31 06/20/2006/20/2025 PET-C T, limit ed [facility] [address] [place] [address] Teleph one Name: Juan Trejo [id number] Exam Date: 2024 Age: 79 Physic abundio: [...] l lobes: 3. Pronou nced Tracer Uptake Human Resources Supervisor ior cingul ate/pr ecuneu s: 3. Pronou [...] 3:06 PM cc: Page PAGE 1 of [facility] 1 [email or web address] Sd Only - Sc Radiology [address] [place] [address], [address], 06/24/2025 13:32:16 Result Notes Documentation Provider Name and Address Organization Details Recorded Time Pet-ct, Limited : [facility] [address] [facility] [address] Name: Franchesca Trejo Exam Date: 06/20/2025 Age: [...] frequent amyloid neuritic plaques. Electronically signed in [email or web address] by: EVETTE EISENBERG MD on:06/20/2025 3:06 PM cc: Page PAGE 1 of [facility] 1 Ashia Layne [facility] 06/24/2025 13:32:16 Problems Name Problem SNOMED Code Status Onset Date Resolution Date Notes Provider Name and Address Organization Details Recorded Time Neurocognitive disorder 045974372 Active 2023 Raine Perkins MD [address] [place] [address], [phone], [facility] 5 10:51:56 Visual hallucinations 27481985 Active 2023 Raine Perkins MD [address] [place] [address], [phone], [facility] 4 16:37:21 Impaired cognition 125088776 Active 2023 Hai Eid [facility] 4 07:44:23 Memory impairment 075878438 Active 2023 Hai Eid [facility] 4 07:44:27 Chronic kidney disease 340809496 Active 2023 Dixie Rosario [facility] 4 10:36:02 Problem Notes None recorded. Medical Equipment None Reported. Allergies Allergen ID Allergen Name Allergen Category Reaction Reaction Severity Criticality Documentation Date Start Date Code Code System Note Provider Name and Address Organization Details Recorded Time 449679 Product containin g penicilli n (product) medicatio n Not available Not available Not available 12/26/20232022 89055 8001 SNOMED Not Available [facility] 4 21:45:58 Medications Name Sig Start Date [...] Updated DateTime 5 160.02 cm 22.2 kg/m2 95731.2 g 73 /min 100 % 100 % 113/43 mm[Hg] [facility] 5 10:13:46 Date Recorded Body height Body mass index (BMI) Body weight Heart rate Oxygen saturation Oxygen saturation in Arterial blood by Pulse oximetry Systolic And Diastolic Provider Name and Address Organization Details Last Updated DateTime 5 160.02 cm 21.8 kg/m2 12660.8 6 g 66 /min 97 % 97 % 108/63 mm[Hg] [facility] 5 15:08:08 Date Recorded Body height Body mass index (BMI) Body weight Provider Name and Address Organization Details Last Updated DateTime 05/14/2024 160.02 cm 21.1 kg/m2 37897.49 g Elise Gan [facility] 05/14/2024 16:03:14 Social History None recorded. Functional Status None recorded. Mental Status None recorded. Family History Nothing Reported. Medical History No medical history recorded. Gynecological HistoryNo gynecological history recorded. Obstetrics History GPAL:G 0 P 0 0 0 0 Past Encounters Encounter ID Performer Location Encounter Start Date Encounter Closed Date Diagnosis/Indication Diagnosis SNOMED-CT Code Diagnosis ICD10 Code Diagnosis IMO Codes Diagnosis Note [id number] Raine Perkins MD [facility] [address] [place] [phone] 05/14/2024 16:00:24 05/21/2024 10:54:06 Neurocognitive disorder 130200551 R41.9 Visual hallucinations 64 378711 R44.1 Impaired cognition 39114 6002 R41.89 Memory impairment 052903 006 R41.3 [id number] Raine Perkins MD [facility] Neurology ([place]) [facility] [place] [address] 12/17/2024 10:12:09 12/17/2024 18:18:04 Neurocognitive disorder 841235284 R41.9 783777 [id number] Raine Perkins MD [facility] Neurology ([place]) [address] [place] [address] 05/13/2025 14:52:31 05/16/2025 06:55:46 Neurocognitive disorder 430320949 R41.9 404705 Visual hallucinations 64 840776 R44.1 Health Concerns Section Related Observation LastModified by Organization Detai ls LastModified Time None Recorded Concern Status LastModified by Organization Details LastModified Time None Recorded Advance Directives Directive None Recorded Payers Insurance Date Sequence Insurance Name Policy Number Policy Mackay Covered Member ID Mackay Member ID Guarantor Name 07/30/2024 1 UNSPECIFIED REMIT PAYOR Franchesca Stahl Maya 06/20/2025 1 [place] [facility] AID Franchesca Favio Maya [id number] Franchesca Favio Maya 06/20/2025 1 [facility] Franchesca Trejo [id number] Franchesca [place] 06/20/2025 1 [facility] (MEDICAID HMO) [id number] Franchesca Trejo [id number] Franchesca Trejo 06/21/2025 1 [facility] (MEDICARE - MEDICAID REPLACEMENT HMO) [id number] Franchesca Trejo [id number] Franchesca Trejo Notes Date Note Type Note [...] and thinking difficulties.Lida Perkins MD [address] [place] [address], [phone], [facility] 05/18/2024 10:23:22 12/17/2024 text/html Patient is an [...] simply showed bacterial contamination. Raine Perkins MD [address] [place] [address], [phone], [facility] 12/27/2024 07:51:08 05/13/2025 text/html Franchesca Trejo is [...] of . Raine Perkins MD [address] [place] [address], [phone], [facility] 05/15/2025 11:32:58 OBGyn Episode No OBEpisode recorded.
--- OUTSIDE RECORDS SUMMARY | 2025-10-03 13:50 | XMS_ITS | Clinical Summary ---
Author Organization [facility] Address [address] [place] [address] Care Team Providers Care Book Retailer Name Role Phone Mariam Miller BRIDGE CONTRACTOR Primary Care Provider [phone] Medications aspirin EC (ECOTRIN) 81 MG tablet Take 1 tablet by mouth daily. Active atorvastatin (LIPITOR) 20 MG tablet Take 1 tablet by mouth daily. Active OZEMPIC, 0.25 OR 0.5 MG/DOSE, 2 MG/3ML injection (PEN) Inject 0.25 mg into the skin every 7 days. 08/15/2023 Active vitamin E 100 UNIT capsule Take 100 Units by mouth daily. Active furosemide (LASIX) 20 MG tablet TAKE 1 TABLET BY MOUTH 3X WEEKLY ON TUESDAY--TUESDAY 36 tablet 2 06/29/2024 Active amLODIPine (NORVASC) 5 MG tablet take 1 tablet by mouth every 24 hours 90 tablet 3 09/24/2024 Active lisinopril (PRINIVIL) 20 MG tablet take 1 tablet by mouth every 24 hours 90 tablet 3 09/24/2024 Active metoprolol succinate ER (TOPROL-XL) 50 MG 24 hr tabletIndicatio ns:Stage 3b chronic kidney disease (CMS/HCC),Hyper tension, essential TAKE 1 TABLET BY MOUTH EVERY DAY 90 tablet 1 09/28/2024 Active calcitriol (ROCALTROL) 0.25 MCG capsule Take 1 capsule (0.25 mcg total) by mouth 3 (three) times a week. 39 capsule 2 03/27/2025 Active Active Problems Problem Noted Date Diagnosed Date Hyponatremia 07/11/2022 Chronic kidney disease, stage IV (severe) 2021 Essential hypertension 12/07/2021 Iron deficiency anemia, unsp ecified iron deficiency anemia type 12/07/2021 Vitamin D deficiency 12/07/2021 Secondary hyperparathyroidism of renal origin Mixed hyperlipidemia 12/07/2021 Social History Tobacco Use Types Packs/Day Years Used Date Smoking Tobacco: Never Comments Unknown Sex and Gender Information Value Date Recorded Sex Assigned at Female 12/17/2024 10:03 AM ARTIST'S REPRESENTATIVE Legal Sex Female 1:26 AM CDT Gender Identity Not on file Sexual Orientation Not on file Last Filed Vital Signs Vital Sign Reading Time Taken Comments Blood Pressure 140/72 01/07/2025 12:50 PM ARTIST'S REPRESENTATIVE Pulse 75 01/07/2025 12:50 PM ARTIST'S REPRESENTATIVE Temperature - - Respiratory Rate 20 10/03/2023 8:52 AM ARTIST'S REPRESENTATIVE Oxygen Saturation - - Inhaled Oxygen Concentration - - Weight 58.4 kg (128 lb 12.8 oz) 025 12:50 PM ARTIST'S REPRESENTATIVE Height 162.6 cm (5' 4) 01/07/2025 12:5 0 PM ARTIST'S REPRESENTATIVE Body Mass Index 22.11 01/07/2025 12:50 PM ARTIST'S REPRESENTATIVE Plan of Treatment Health Maintenance Due Date Last Done Comments DTaP, Tdap and Td Vaccines ( 1 - Tdap) 1963 Pneumococcal Vaccine: 50+ Ye ars (1 of 1 - PCV) 1994 Zoster Vaccines (1 of 2) 1994 Annual Medicare Wellness Visit 2009 Dexa Scan (General) 2009 RSV Immunization or 60+ Years (1 - 1-dose 75+ series) 2019 COVID-19 Vaccine (1 - 2024-2 6 season) 2025 Influenza Adult (#1) 2025 10/19/2016 Hepatitis A Vaccines Aged Out No long er eligible based on patient's age to complete this topic Meningococcal B Vaccine Aged Out No l onger eligible based on patient's age to complete this topic Meningococcal Vaccine Aged Out No ethel alondra eligible based on patient's age to complete this topic RSV Immunizations Under 20 Months Aged Out No longer eligible based on patient's age to complete this topic Insurance [employer] MEDICARE M[employer]INA MEDICARE Care Teams Book Retailer Relationship Specialty Start Date End Date Mariam Miller FNP [address] [place] [address] PCP - General NURSE PRACTITIONER 06/08/24
--- OUTSIDE RECORDS SUMMARY | 2025-10-03 13:50 | XMS_ITS | Encounter Summary ---
Author Organization [facility] Address [address] [place] [address] Care Team Providers Care Preschool Disability Teacher Name Role Phone Price Ruiz MD Primary Care Provider [phone] Mariam Miller Primary Care Provider [phone] Encounter Details Date Type Department Care Team (Late st Contact Info) Description 06/11/2020 Abstract [facility] [address] [place] [id number] Social History Tobacco Use Types Packs/Day Years Used Date Smoking Tobacco: Never Comments Unknown Sex and Gender Information Value Date Recorded Sex Assigned at Female 12/17/2024 10:03 AM [employer]ANCH [employer]GER Legal Sex Female 1:26 AM CDT Gender Identity Not on file Sexual Orientation Not on file COVID-19 Exposure Response Date Recorded In the last month, have you been in contact with someone who was confirmed or suspected to have Coronavirus / COVID-19? No / Unsure 06/09/2020 9:52 AM CDT documented as of this encounter Plan of Treatment Not on file documented as of this encounter Visit Diagnoses Not on filedocumented in this encounter Care Teams Preschool Disability Teacher Relationship Specialty Start Date End Date Price Ruiz MD [address] [place] [address] PCP - General FAMILY PRACTICE 05/11/19 06/07/24 Mariam Miller FNP [address], [place] [id number] PCP - General NURSE PRACTITIONER 06/08/24 documented as of this encounter
== END 2025-10-02 14:15 | disposition home or self-care (01) ==
LOC: CHSIMG 14:14
PROVIDERS: PCP Nurse Practitioner Family; Visit Provider Nurse Practitioner Family
DX: Z78.0 Asymptomatic menopausal state (principal); M85.89 Other specified disorders of bone density and structure, multiple sites
CPT/HCPCS: 77080